=== PATIENT | female | born 1965 | race Caucasian/White ===

== ENCOUNTER → 2016-09-24 | Day surgery (SDC) | payer OTHER ==
[~2016-09-24] MED LIST: ISOSULFAN BLUE 10 MG/ML VIAL SQ ONE; LIDOCAINE 1%-EPI 1:100,000 30 ML MDV IJ ONE; LIDOCAINE HCL 1%, 10 MG/ML (20ML VIAL) ONE
--- NOTE | 2016-09-25 14:36 | PATH ---
Surgical Pathology Report Patient Name: ARJUN PÉREZ [facility]. Rec. #: [id number] /Age/Gender: 1965 (Age: 51) / F Account: [id number] Location: [facility] Taken: 09/24/2016 Received: 09/24/2016 Reported: 09/25/2016 Physicians: José Bailon M.D. Specimen(s) Received RIGHT BREAST CORE BIOPSY 10:00, 5-6 CM FN Clinical History Ultrasound findings: Highly suspicious/malignant Final Diagnosis BREAST, RIGHT, 10:00, 5-6 CM FN, CORE BIOPSY: INVASIVE DUCTAL CARCINOMA, POORLY DIFFERENTIATED WITH PROMINENT ASSOCIATED LYMPHOPLASMOCYTIC INFILTRATE. INVASIVE CARCINOMA MEASURES 9 MM IN GREATEST DIMENSION IN THIS MATERIAL. Results of ER and DC studies performed at [facility] are as follows: ER (clone [id number] mouse monoclonal antibody by Le[employer]): > 90 % nuclear staining with strong to moderate intensity (Positive). DC (clone16 mouse monoclonal antibody by Leica) : 0 % nuclear staining (Negative). Results of Her2 and Ki67 studies will be reported separately in an addendum. Positive and negative controls (internal if applicable) show appropriate results. Formalin fixation and cold ischemic times are within current ASCO/CAP recommendations for ER, DC and Her2 testing. Electronically Signed Sandra Montanez M.D. Addendum Reported: 09/29/2016 Addendum Diagnosis Results of Her2 (IHC) & Ki-67 studies performed at [place], [place] ([id number]) are as follows: Her2 IHC (EP3 from [employer], formerly known as [id number], using Smith Polymer Refine detection kit): 0 (Negative). Ki-67: ~90% (High). Positive and negative controls (internal if applicable) show appropriate results. Sandra Montanez M.D. Gross Description Received in formalin, labeled "right breast 10:00, 5-6 cmfn," are 4 woodard-yellow, cylindrical portions of fibroadipose tissue ranging from 1.7-2.1 cm. in length and averaging 0.2 cm. in diameter. The specimen is submitted in toto in one cassette. Time to formalin fixation: 2 minutes Total formalin fixation time: Approximately 9 hours. 09/24/201609/24/2016
== END | disposition home or self-care (01) ==
LOC: FRAD 07:43 → FRADUS-SUR 07:43
PROVIDERS: ATTEND Physician Assistant Medical
PROC: 0HBT3ZX Excision of Right Breast, Percutaneous Approach, Diagnostic (ICD-10-PCS; principal; 2016-09-24)
DX: N63 Unspecified lump in breast (principal); C50.411 Malignant neoplasm of upper-outer quadrant of right female breast
CPT/HCPCS: 19083; 76641-TC-50; 87899; 88305-TC; 88342-TC; A4648; G0204-TC; G0206-TC

== ENCOUNTER 2016-11-11 09:17 | Inpatient (IN) | payer OTHER ==
[2016-10-31 09:27] VITALS: BMI 26.0
--- NOTE | 2016-11-03 14:09 | HP ---
Admitting History and Physical - Primary Care Physician PCP: Silvia Taylor - Admission Chief Complaint: Right breast cancer History of Present Illness: 51 year old postmenapausal female. She felt a plpable right upper outer quadrant breat mass on 09/13/2016. Mammogram wnl march 2016 and diagnostic right mammogram and US 09/24/2016 whcich showed 2.2x1.4x1.2 cm mass at 10;00. US core bx 09/24/2016 invasive ductal carcinoma. Oncologist did not recommend neoadjuvant chemotherapy first. Breast MRI Right breast newly diagnosed right breast cancer at 10:00. left breast negative. History Source: Patient Limitations to Obtaining History: No Limitations - Past Medical History ...LMP: 08/10/15 Musculoskeletal: Yes: Other (Herniated disc cervical) Additional Past Medical History: Seasonal allergies Herniated cervical disc - Past Surgical History Past Surgical History: Yes: Hernia Repair (inguinal 1989) - Smoking History Smoking history: Current every day smoker Have you smoked in the past 12 months: Yes Aproximately how many cigarettes per day: 5 - Alcohol/Substance Use Hx Alcohol Use: Yes (SOCIAL) Home Medications - Allergies Allergies/Adverse Reactions: Allergies Allergy/AdvReac Type Severity Reaction Status Date / Time No Known Allergies Allergy Verified 10/31/16 09:27 - Home Medications Home Medications: Ambulatory Orders Cetirizine HCl [Zyrtec -] 10 mg PO DAILY 10/31/16 Family Disease History - Family Disease History Family Disease History: CA: Grandparent (paternal GM breast ca 85), Mother ( ovarian cancer 60) Other Family History: pat aunt ovarian cancer 52 Physical Examination Constitutional: Yes: Well Nourished, No Distress Breast(s): Yes: Other (B cup breasts symmetrical 2 cm mobile mass in right upper outer quadrant with post bx changes, no palpable adenopathy, left breast negatve) Problem List - Problems (1) Breast cancer, right Code(s): C50.911 - MALIGNANT NEOPLASM OF UNSP SITE OF RIGHT FEMALE BREAST Qualifiers: Breast location: upper outer quadrant of breast Patient sex: female Qualified Code(s): C50.411 - Malignant neoplasm of upper-outer quadrant of right female breast Assessment/Plan Right breast wide excision, sentenel node biopsy , lymphoscintogram, possible axillary dissection , intraop radiation
[2016-11-11] MEDS ORDERED: MIDAZOLAM HCL 2 MG/2 ML SINGLE DOSE VIAL ONE (10:20)
[2016-11-11] MEDS ORDERED: PROPOFOL 20 ML ONE (10:38)
[2016-11-11] MEDS ORDERED: ROCURONIUM BROMIDE 50 MG/5 ML VIAL ONE (10:38)
[2016-11-11] MEDS ORDERED: LIDOCAINE HCL/PF 2% SDV 5ML VIAL ONE (10:39)
[2016-11-11] MEDS ORDERED: ceFAZolin SODIUM 1 GM VIAL ONE (10:48)
[2016-11-11] MEDS ORDERED: DEXAMETHASONE SOD PHOSPHATE 4 MG/1 ML VIAL ONE (12:04)
[2016-11-11] MEDS ORDERED: ONDANSETRON 4 MG/2 ML VIAL ONE ×2 (12:04→13:30)
[2016-11-11] MEDS ORDERED: LIDOCAINE HCL 2% JELLY (5 ML/TUBE) ONE (13:30)
[2016-11-11] MEDS ORDERED: oxyCODONE HCL 5 MG TABLET PO PRN ×2 (13:44→13:47)
[2016-11-11] MEDS ORDERED: LACTATED RINGERS SOLUTION 1,000 ML IV SCH ×2 (13:45→14:00)
[2016-11-11] MEDS ORDERED: ONDANSETRON 4 MG/2 ML VIAL IVPUSH PRN (14:11)
[2016-11-11] MEDS ORDERED: ONDANSETRON 4 MG/2 ML VIAL IVPB PRN (14:11)
[2016-11-11] MEDS ORDERED: FAMOTIDINE 20 MG/50 ML IVPB 50 ML IVPB ONE (14:38)
[2016-11-11] MEDS ORDERED: FAMOTIDINE 20 MG PREMIXED IVPB IVPB ONE (14:40)
[2016-11-11 15:48] VITALS: TEMP 98.3
[2016-11-11 16:46] VITALS: BP 97/61; PULSE 74
--- NOTE | 2016-11-12 13:06 | OP ---
DATE OF OPERATION: 11/11/2016 TITLE OF PROCEDURE: Reconstruction of right partial mastectomy defect status post right partial mastectomy. ATTENDING SURGEON: Elio Swan MD The procedure is performed in combination with a right partial mastectomy and sentinel lymph node biopsy performed by Dr. Silvia Taylor. That portion of the procedure to be dictated separately by Dr. Taylor. ANESTHESIA: General endotracheal anesthesia. DESCRIPTION OF PROCEDURE: The patient is brought to the operating room, positioned by Dr. Taylor and her team. The patient is prepped and draped, after which I am scrubbed into the operating room. She received 1 g of Ancef preoperatively. She received NICKI hose and sequential compression devices on bilateral legs. A timeout was called. Patient, procedure, side, and sites were verified. My portion of the dictation begins at the completion of Dr. Taylor's partial mastectomy and sentinel lymph node biopsy. At this point an assessment of the tissues is made. It was determined by Dr. Taylor and her team that intraoperative radiation would not be possible given the thinness of the anterior skin flap. It was also noted by me that there was poor viability of the anterior skin flap, which appeared blistered, and it was not likely to heal. I discussed this with Dr. Taylor, and given how superficial the tumor was, it was decided to remove the injured skin as part of the partial reconstruction. That skin was sent for pathology as an additional anterior margin of resection. At this point, the reconstruction was performed by mobilization of axillary tissue posteriorly using axillary fat mobilized on a posterior deep pedicle and mobilized into the defect. Separately, an anterior medial glandular flap of tissue is elevated and mobilized off of the pectoralis major muscle as well as off of the anterior skin so that it could be mobilized without distorting the breast. These 2 flaps have both axillary fat and anteromedial breast tissue are mobilized towards each other and secured to one another with a series of interrupted 2-0 Vicryl suture. The tissues are approximated and sutured to the chest wall. It should be noted that prior to closing the defect, the borders of the defect were marked with clips so should a positive margin occur, recreation of the defect would be possible. Tissues being mobilized, then left a small skin defect which was able to be mobilized by back cutting the existing incision in toward the axilla and rotating skin into the defect, which was able to be closed without tension. This skin closure was able to be performed with a series of interrupted buried deep dermal 3-0 Monocryl suture followed by running subcuticular 3-0 Monocryl suture. Small irregularities in the skin closure are corrected with a 5-0 nylon suture. The wound was dressed with Bacitracin and Xeroform, ABD, gauze, and a surgical bra. She was awoken from anesthesia, having tolerated the procedure well, transferred to recovery without complication. Drake [id number]
--- NOTE | 2016-11-12 14:59 | OP ---
DATE OF OPERATION: 11/11/2016 PROCEDURE: Right partial mastectomy and sentinel biopsy PREOPERATIVE DIAGNOSIS: Right breast cancer POSTOPERATIVE DIAGNOSIS: Right breast cancer SURGEONS: Devin Taylor MD, Elio Swan MD ANESTHESIA: General. ANESTHESIOLOGIST: SPECIMEN: (1) [place] nodes. (2) Axillary fat. (3) Right breast partial mastectomy. (4) Additional margins. (5) Additional anterior margin. INDICATION FOR PROCEDURE: The patient is a 51-year-old female who felt a right breast mass in September 2016. Mammogram was normal in March 2016. Diagnostic imaging showed a 2.2-cm mass in the right breast at 10 o'clock. Ultrasound- guided biopsy showed an ER-positive and [place] and HER2/linda negative invasive ductal cancer with a Ki 67 of 90%. She was seen by Medical Oncology who did not recommend preoperative chemotherapy. She is going to the operating room today for a partial mastectomy and sentinel node biopsy as well as intraoperative radiation therapy as part of the TARGIT-B study. The procedure, risks and complications were discussed with her prior to surgery. PROCEDURE: The patient went to Nuclear Medicine where she underwent lymphoscintigraphy. She was then taken to the ambulatory area where informed consent was obtained. The right breast was identified with a marker. Examination of the right breast showed a palpable mass at 10 o'clock. She was taken to the operating room and placed on the operating table in the supine position. Sequential compression devices were placed on both legs. She received antibiotics prior to surgery. She was intubated. The right breast and axilla were prepped and draped in the usual fashion. Isosulfan blue was injected into the breast, and the breast was massaged for several minutes. The operative field was prepped and draped in the usual fashion. A timeout was performed. The patient had an incision from a previous procedure in the upper outer quadrant of the right breast. This incision was re-opened and deepened using electrocautery. There was some scar tissue, which was easily mobilized. Both the sentinel node and the wide excision was done from this incision. The probe was used to identify areas of high counts. Dissection in this area showed several nodes, which were not blue but all had high counts. Four lymph nodes were removed and sent to pathology for permanent suction. Attention was then turned to removal of the right breast cancer. The mass was identified. Electrocautery was used to mobilize the tissue around the mass. The mass was fairly superficial, so the anterior skin flap was quite thin. The mass was completely mobilized down toward the chest wall. The specimen was removed and oriented with a short stitch for the superior margin and a long stitch for the lateral margin. The specimen was placed in formalin to be sent to pathology for further examination. Additional margins were then taken. The margins were taken from the anterior, superior, inferior, medial and lateral regions of the biopsy cavity. There was no additional margin from the deep part of the dissection as this was already on muscle. Dr. Swan then mobilized tissue to be used as part of the closure. He will dictate this part of the procedure as well as closure of the incision. Evaluation of the skin flap showed there was some cautery damage to a portion of the skin. We then attempted to prepare for the intraoperative radiation treatment. A 4.5- cm probe was selected. This fit well into the cavity. However, after reviewing the available coverage for the probe, it was decided that there was too much risk of damage to the overlying skin due to lack of sufficient coverage. We decided to abort the radiation treatment and continue with the rest of the procedure. Dr. Swan then performed his procedure, which he will dictate. The wound was then irrigated and inspected for hemostasis. Once hemostasis was satisfactory, the incision was closed. The wound was cleaned and dressed with a sterile dressing. The patient was then awakened and taken to the recovery area in satisfactory condition. She tolerated the procedure well. At the end of the procedure, all sponge and instruments were correct. I was present during the entire case. DEVIN TAYLOR M.D. [id number] MTDD
--- NOTE | 2016-11-13 15:34 | PATH ---
Surgical Pathology Report Patient Name: ARJUN PÉREZ [facility]. Rec. #: [id number] /Age/Gender: 1965 (Age: 51) / F Account: [id number] Location: [facility] Taken: 11/11/2016 Received: 11/11/2016 Reported: 11/13/2016 Physicians: Silvia Taylor M.D. Specimen(s) Received A: RIGHT BREAST AXILLARY SENTINEL NODES B: RIGHT BREAST AXILLARY FAT C: RIGHT BREAST WIDE EXCISION D: RIGHT BREAST INFERIOR MARGIN E: RIGHT BREAST LATERAL MARGIN F: RIGHT BREAST ANTERIOR MARGIN G: RIGHT BREAST SUPERIOR MARGIN H: RIGHT BREAST MEDIAL MARGIN I: RIGHT BREAST SKIN ADDITIONAL ANTERIOR MARGIN Clinical History Palpable mass Invasive Final Diagnosis A. LYMPH NODES, RIGHT AXILLARY, SENTINEL LYMPH NODE EXCISION: THREE BENIGN LYMPH NODES (0/3) BY STANDARD HEMATOXYLIN AND EOSIN STAIN (MULTIPLE LEVELS EXAMINED). B. LYMPH NODES, RIGHT AXILLARY, EXCISION: TWO BENIGN LYMPH NODE (0/2) BY STANDARD HEMATOXYLIN AND EOSIN STAIN (MULTIPLE LEVELS EXAMINED). C. RIGHT BREAST, WIDE EXCISION: POORLY DIFFERENTIATED INVASIVE DUCTAL CARCINOMA WITH PROMINENT ASSOCIATED LYMPHOPLASMOCYTIC INFILTRATE, CLAUDIO GRADE 3 OF 3 (TUBULE SCORE 3 OF 3, NUCLEAR GRADE 3 OF 3, MITOTIC SCORE 3 OF 3, TOTAL 9 OF 9), MEASURING 2.1 CM IN GREATEST DIMENSION MEASURED ON A SLIDE. NO DUCTAL CARCINOMA IN SITU (DCIS) IDENTIFIED. INVASIVE CARCINOMA IS 0.1 CM FROM THE SUPERIOR AND ANTERIOR ASPECTS OF THE SPECIMEN, AND 0.2 CM FROM THE INFERIOR AND DEEP ASPECTS OF THE SPECIMEN (SEE SPECIMENS D-H FOR FINAL MARGINS). NO LYMPHOVASCULAR INVASION IDENTIFIED. NO SKIN OR SKELETAL MUSCLE PRESENT. REMAINING BREAST TISSUE WITH FIBROCYSTIC CHANGES INCLUDING ADENOSIS, STROMAL FIBROSIS, AND DUCTAL DILATATION. D. RIGHT BREAST, INFERIOR MARGIN, EXCISION: BENIGN FIBROFATTY TISSUE. E. RIGHT BREAST, LATERAL MARGIN, EXCISION: BENIGN FIBROFATTY TISSUE. F. RIGHT BREAST, ANTERIOR MARGIN, EXCISION: BENIGN BREAST TISSUE. G. RIGHT BREAST, SUPERIOR MARGIN, EXCISION: BENIGN FIBROFATTY TISSUE. H. RIGHT BREAST, MEDIAL MARGIN, EXCISION: BENIGN BREAST TISSUE. I. RIGHT BREAST, SKIN AND ADDITIONAL ANTERIOR MARGIN, EXCISION: UNREMARKABLE SKIN. Comment: Also see prior specimen [id number]. Comments Breast Invasive Carcinoma: Surgical Pathology Cancer Case Summary Based on AJCC/UICC TNM, 7th edition Procedure _X__ Excision without image-guided localization Lymph Node Sampling (select all that apply) (required only if lymph nodes are present in the specimen) _X__ [place] lymph node(s) _X__ Axillary dissection (partial or complete dissection) Specimen Laterality _X__ Right Tumor Size: Size of Largest Invasive Carcinoma Greatest dimension of largest focus of invasion over 1 mm: 21 mm Tumor Focality _X__ Single focus of invasive carcinoma Macroscopic and Microscopic Extent of Tumor Skin _X__ Invasive carcinoma does not invade into the dermis or epidermis Nipple _X__ Not applicable (excisions less than total mastectomy) Ductal Carcinoma In Situ (DCIS) _X__ No DCIS is present Histologic Type of Invasive Carcinoma : _X__ Invasive carcinoma of no special type (ductal, not otherwise specified) Histologic Grade: (Mcdowell Histologic Score) Tubular Differentiation _X__ Score 3 Nuclear Pleomorphism _X__ Score 3 Mitotic Rate _X__ Score 3 Overall Grade _X__ Grade 3: scores of 8 or 9 (poorly differentiated) Margins _X__ Margins uninvolved by invasive carcinoma (required only if residual invasive carcinoma is present in specimen) Distance from closest margin: Cannot be determined. Invasive carcinoma is 1 mm from the anterior and superior aspects of the wide excision, and 2 mm from the inferior and deep aspects of the wide excision, but is not present in the final margins (Specimens D-H) Lymph-Vascular Invasion _X__ Not identified Lymph Nodes Total number of lymph nodes examined (sentinel and nonsentinel): 5 Number of sentinel lymph nodes examined: 3 Number of lymph nodes with macrometastases ( > 2 mm): 0 Number of lymph nodes with micrometastases (>0.2 mm to 2 mm and/or >200cells):0 Number of lymph nodes with isolated tumor cells (=0.2 mm and =200 cells): 0 Extranodal Extension _X__ Not applicable Pathologic Staging (pTNM) Primary Tumor (Invasive Carcinoma): pT2 Regional Lymph Nodes (pN): pN0 Biomarker Studies Results of ER and RI studies performed on a prior biopsy ( [id number] ) at [facility] are as follows: ER (clone [id number] mouse monoclonal antibody by [employer]): >90% nuclear staining with strong intensity (Positive). RI (clone16 mouse monoclonal antibody by [employer]) : 0% nuclear staining (Negative). Results of Her2 (IHC) & Ki-67 studies performed on a prior biopsy ( [id number]) at [place], [place] ( [id number]) are as follows: Her2 IHC (EP3 from [employer], formerly known as [id number], using Smith Polymer Refine detection kit): 0 (Negative) Ki67: ~90% (High) Positive and negative controls (internal if applicable) show appropriate results. Formalin fixation and cold ischemic times are within current ASCO/CAP recommendations for ER, RI and Her2 testing. Electronically Signed Chente Martínez M.D. Gross Description A. Received in formalin labeled "right breast axillary sentinel nodes," are 4 woodard, possible lymph nodes with attached fat. Each lymph node is bisected and the specimen is entirely submitted in 4 cassettes. B. Received in formalin labeled "right breast axillary fat," is a 2.5 x 2.4 x 0.3 cm portion of yellow, lobulated adipose tissue possibly containing a lymph node. The specimen is submitted in toto in one cassette. C. Received in formalin, labeled "right breast wide excision," is a 5.0 x 3.5 x 2.1 cm. woodard-yellow, irregular, portion of fibroadipose tissue. There is no needle localization wire present. There is a short suture marking the superior aspect and a long suture marking the lateral aspect, per the surgeon. There is no skin or nipple present. The specimen is inked as follows: superior and lateral blue; inferior green; medial yellow; anterior red; deep black. The specimen is serially sectioned from lateral to medial. Sectioning reveals a 2.0 x 2.0 x 1.6 cm woodard, indurated mass with central necrosis. The mass is focally at 0.1 cm from the deep margin and 0.1 cm from the anterior margin. Additionally, the mass is focally at 0.3 cm from the superior margin and 0.3 cm from the inferior margin. [place] [employer] sections are submitted in 7 cassettes as follows: 1-full face section of mass with anterior and deep margins; 2-additional mass with anterior and deep margins; 3-4-mass with superior, anterior and deep margins; 5-mass with inferior, anterior and deep margins; 6-medial margin; 7-lateral margin. Time to formalin fixation: 45 minutes Total formalin fixation time: Approximately 29 hours. D. Received in formalin labeled "right breast inferior margin," is a 2.0 x 1.5 x 0.3 cm irregular portion of fibroadipose tissue with a suture marking the biopsy cavity side, per the surgeon. The new margin is inked green and the specimen is serially sectioned. The specimen is entirely submitted in 2 cassettes. E. Received in formalin labeled "right breast lateral margin," is a 4.3 x 2.5 x 0.9 cm irregular portion of fibroadipose tissue with a suture marking the biopsy cavity side, per the surgeon. The new margin is inked green and the specimen is serially sectioned. The specimen is entirely submitted in 4 cassettes. F. Received in formalin labeled "right breast anterior margin," is a 2.4 x 1.4 x 0.5 cm irregular portion of fibroadipose tissue with a suture marking the biopsy cavity side, per the surgeon. The new margin is inked green and the specimen is serially sectioned. The specimen is entirely submitted in 2 cassettes. G. Received in formalin labeled "right breast superior margin," is a 3.0 x 2.1 x 1.8 cm irregular portion of fibroadipose tissue with a suture marking the biopsy cavity side, per the surgeon. The new margin is inked green and the specimen is serially sectioned. The specimen is entirely submitted in 3 cassettes H. Received in formalin labeled "right breast and medial margin," is a 2.0 x 1.8 x 0.9 cm irregular portion of fibroadipose tissue with a suture marking the biopsy cavity side, per the surgeon. The new margin is inked green and the specimen is serially sectioned. The specimen is entirely submitted in 2 cassettes. I. Received in formalin labeled "right breast skin additional anterior margin," is a 6.0 x 1.8 cm woodard, irregular skin shave. The base is inked green and textile designs sales representative sections are submitted in 2 cassettes. DL11/12/2016 saudi11/12/2016
== END 2016-11-11 16:40 | disposition home or self-care (01) | DRG 363 ==
LOC: FM/S 09:17 → EDSTATUS 09:30
PROVIDERS: ADMIT Surgery; ATTEND Surgery
PROC: 0HBT0ZZ Excision of Right Breast, Open Approach (ICD-10-PCS; principal; 2016-11-11 11:06)
PROC: 07B50ZX Excision of Right Axillary Lymphatic, Open Approach, Diagnostic (ICD-10-PCS; 2016-11-11 11:06)
PROC: 0H0T07Z Alteration of Right Breast with Autologous Tissue Substitute, Open Approach (ICD-10-PCS; 2016-11-11 11:06)
DX: C50.411 Malignant neoplasm of upper-outer quadrant of right female breast (principal); M50.20 Other cervical disc displacement, unspecified cervical region; F17.210 Nicotine dependence, cigarettes, uncomplicated; K40.90 Unilateral inguinal hernia, without obstruction or gangrene, not specified as recurrent
CPT/HCPCS: 78195-TC; 88302-TC; 88305-TC; 88307-TC; 94760; A9541

== ENCOUNTER 2016-12-25 07:38 | Day surgery (SDC) | payer OTHER ==
[2016-12-25] MEDS ORDERED: DEXAMETHASONE INJECTION 10 MG in SODIUM CHLORIDE 50 ML IVPB ONE (08:00)
[2016-12-25] MEDS ORDERED: PALONOSETRON HCL 0.25 MG in SODIUM CHLORIDE 50 ML IVPB ONE (08:00)
[2016-12-25] MEDS ORDERED: FOSAPREPITANT DIMEGLUMINE 150 MG in SODIUM CHLORIDE 150 ML IVPB ONE (08:00)
[2016-12-25] MEDS ORDERED: SODIUM CHLORIDE IV ONE (08:30)
[2016-12-25] MEDS ORDERED: DOCETAXEL IV ONE (08:30)
[2016-12-25] MEDS ORDERED: CYCLOPHOSPHAMIDE INJECTION 1,000 MG in SODIUM CHLORIDE 250 ML IVPB ONE (09:30)
[2016-12-25 10:40] LABS: BASOPHIL 0.4 % (0-2.0); MCH 31.8 pg (25.7-33.7); MCHC 33.4 g/dl (32.0-36.0); MEAN CELL VOLUME 95.1 fl (80-96); MEAN PLT VOLUME 9.2 fl (7.5-11.1); NEUTROPHILS 81.6 % (42.8-82.8); PLATELET COUNT 257 K/MM3 (134-434); RDW 13.1 % (11.6-15.6); WHITE BLOOD COUNT 17.1 K/mm3 (4.0-10.0)
[2016-12-25 11:03] LABS: ALBUMIN 3.8 g/dl (3.4-5.0); ANION GAP 12 (8-16); BILIRUBIN,TOTAL 0.3 mg/dL (0.2-1.0); CALCIUM 9.3 mg/dL (8.5-10.1); CO2 24 mmol/L (21-32); CREATININE 0.7 mg/dL (0.55-1.02); GLUCOSE,RANDOM 131 mg/dL (74-106); SGOT/AST 15 U/L (15-37); SGPT/ALT 17 U/L (12-78); TOT PROT 7.1 g/dl (6.4-8.2)
[2016-12-25 11:04] LABS: ALK PHOS 107 U/L (45-117)
--- NOTE | 2016-12-25 12:56 | PN ---
Progress Note (short form) - Note Progress Note: Plan PPD next week Christ MOSQUEDA Problem List - Problems (1) Exposure to TB Code(s): Z20.1 - CONTACT WITH AND (SUSPECTED) EXPOSURE TO TUBERCULOSIS
[2016-12-25] MEDS ORDERED: SODIUM CHLORIDE 250 ML IV ONE (13:00)
[2016-12-25] MEDS ORDERED: DEXAMETHASONE INJECTION 20 MG in SODIUM CHLORIDE 100 ML IVPB ONE (14:00)
[2016-12-25] MEDS ORDERED: PORTA CATH FLUSH 10 ML IVPUSH ONE (14:05)
--- NOTE | 2016-12-25 14:42 | CONS ---
DATE OF CONSULTATION: DATE OF DICTATION: 12/25/2016 INFECTIOUS DISEASE CONSULTATION HISTORY OF PRESENT ILLNESS: This is a 51-year-old female, originally from [place], whom I am asked to see for a history of a positive PPD. She was born in [place] and came to the [facility] by way of [place] approximately 20 years ago. For immigration reasons, she had a PPD placed, which she told Dr. Webb and myself had been positive. A workup for active TB was apparently performed at that time, and she was told that this was related to prior vaccination with BCG. She has never received any latent TB treatment. She has been recently diagnosed with stage I breast cancer and is about to start chemotherapy. A [id number]-dyhqorvx was inserted in the left chest recently. She has been afebrile and denies any cough, shortness of breath, hemoptysis, loss of appetite or weight loss. I am asked to see her now regarding further management for possible latent TB. I recommended a test for QuantiFERON gold, which was performed and came back negative. The Department of Health recommended that a PPD be placed. The patient seems insistent that this is unnecessary as she received BCG. PAST MEDICAL HISTORY: Denies diabetes, intravenous drug use, history of chronic liver disease or other systemic diseases. PHYSICAL EXAMINATION: General: She was an afebrile pleasant woman. Vital Signs: Temperature 98.5, pulse 89, blood pressure 110/69, respirations 16. Neck: Supple. Lungs: Clear. Heart: S1, S2. Regular rhythm. No murmur. Chest: Symmetrical, with a [id number]-ovbbadpz in situ. The site was clean. Abdomen: Soft, nontender. Extremities: Without edema. DIAGNOSTIC STUDIES: White count 17.1, hemoglobin 13.4, platelets 257. BUN 12, creatinine 0.7. Chest x-ray done as an outpatient shows no acute infiltrate, according to report from Dr. Webb. ASSESSMENT: 1. Possible latent tuberculosis, although QuantiFERON gold negative. 2. Breast cancer, stage I. PLAN: For completeness, will place a PPD next week. She is cleared to start chemotherapy. Elevated WBC noted on admission. In the absence of any fever or findings suggestive of infection, kindly recall as needed. VEENA ROBERT M.D. [id number]
[2016-12-25 18:11] VITALS: BP 92/63; PULSE 86; TEMP 98.5
== END 2016-12-25 20:42 | disposition home or self-care (01) ==
LOC: JONCCHEMO 07:38 → J7W 11:55 → JONCCHEMO 20:42
PROVIDERS: ATTEND Internal Medicine Hematology & Oncology
DX: Z51.11 Encounter for antineoplastic chemotherapy (principal); C50.911 Malignant neoplasm of unspecified site of right female breast
CPT/HCPCS: 36415; 80053; 85025; 87040; 87086; 96367; 96375; 96413; 96417; J2469; J8540; J9070; J9171

== ENCOUNTER 2016-12-29 07:08 | Day surgery (SDC) | payer OTHER ==
[2016-12-29] MEDS ORDERED: PEGFILGRASTIM 6 MG/0.6 ML DISP.SYRIN SQ ONE (08:00)
[2016-12-29 15:23] VITALS: BP 114/55; PULSE 87; TEMP 99.3
== END 2016-12-29 17:05 | disposition home or self-care (01) ==
LOC: JONCCHEMO 07:08 → J7W 11:19 → JONCCHEMO 17:05
PROVIDERS: ATTEND Internal Medicine Hematology & Oncology
PROC: 3E013GC Introduction of Other Therapeutic Substance into Subcutaneous Tissue, Percutaneous Approach (ICD-10-PCS; principal; 2016-12-29)
DX: C50.911 Malignant neoplasm of unspecified site of right female breast (principal)
CPT/HCPCS: 96372; J2505

== ENCOUNTER 2017-01-01 20:52 | Inpatient (IN) | payer OTHER ==
[2017-01-01 21:01] VITALS: BMI 27.8
--- NOTE | 2017-01-01 21:21 | PDOC ---
*Physical Exam - Vital Signs Last Vital Signs Temp Pulse Resp BP Pulse Ox 100.3 F H 76 18 116/67 100 01/01/17 20:59 01/01/17 20:59 01/01/17 20:59 01/01/17 20:59 01/01/17 20:59 - Physical Exam Comments: 01/01/17 21:21 The patient was examined by DARIN Beltran under my direct supervision. I personally evaluated the patient. I concur with the above findings and the plan of care. ED Treatment Course - LABORATORY CBC & Chemistry Diagram: 01/06/17 06:00 01/05/17 06:00 *DC/Admit/Observation/Transfer Diagnosis at time of Disposition: Fever - Discharge Dispostion Disposition: HOME Condition at time of disposition: Stable
--- NOTE | 2017-01-01 21:21 | PDOC ---
History of Present Illness - General Chief Complaint: Cold Symptoms Stated Complaint: FEVER Time Seen by Provider: 01/01/17 21:01 History Source: Patient - History of Present Illness Initial Comments: 01/01/17 21:17 51 year old female with history of breast CA currently on chemo c/o tmax 100.9 at home. last chemo 1 week ago. patient reports runny nose, b/l lower back pain at this time. denies cough, chest pain, abdominal pain, NVD, urinary complaints. Past History - Past Medical History Allergies/Adverse Reactions: Allergies Allergy/AdvReac Type Severity Reaction Status Date / Time Latex, Natural Rubber Allergy Rash Verified 01/01/17 22:53 Home Medications: Ambulatory Orders Unobtainable [Unobtainable] 01/01/17 Anemia: No Asthma: No Cancer: Yes (breast) Cardiac Disorders: No CVA: No COPD: No CHF: No Dementia: No Diabetes: No GI Disorders: Yes (inguinal hernia) Disorders: No HTN: No Hypercholesterolemia: No Liver Disease: No Seizures: No Thyroid Disease: No - Surgical History Abdominal Surgery: No Appendectomy: No Cardiac Surgery: No Cholecystectomy: No Lung Surgery: No Neurologic Surgery: No Orthopedic Surgery: No - Psycho/Social/Smoking Cessation Hx Anxiety: No Suicidal Ideation: No Smoking History: Former smoker Have you smoked in the past 12 months: Yes Number of Cigarettes Smoked Daily: 5 Information on smoking cessation initiated: No Hx Alcohol Use: No Drug/Substance Use Hx: No Substance Use Type: None Hx Substance Use Treatment: No Review of Systems - Review of Systems Able to Perform ROS?: Yes Is the patient limited Bulgarian proficient: No HEENTM: Yes: Nose Congestion. No: Symptoms Reported, See HPI, Eye Pain, Blurred Vision, Tearing, Recent change in vision, Double Vision, Cataracts, Ear Pain, Ocular Prothesis, Ear Discharge, Nose Pain, Tinnitus, Nose Bleeding, Hearing Loss, Throat Pain, Throat Swelling, Mouth Pain, Dental Problems, Difficulty Swallowing, Mouth Swelling, Other Respiratory: No: Symptoms reported, See HPI, Cough, Orthopnea, Shortness of Breath, SOB with Exertion, SOB at Rest, Stridor, Wheezing, Productive cough, Hemoptysis, Other ABD/GI: No: Symptoms Reported, See HPI, Abdominal Distended, Abd. Pain w/ defecation, Blood Streaked Bowels, Constipated, Diarrhea, Difficulty Swallowing , Nausea, Poor Appetite, Poor Fluid Intake, Rectal Bleeding, Vomiting, Indigestion, Abdominal cramping, Tarry Stools, Other : No: Symptoms Reported, See HPI, Burning, Dysuria, Discharge, Frequency, Flank Pain, Hematuria, Incontinence, Pain, Urgency, Testicular Mass, Testicular Swelling, Lesions, Testicular Pain, Other Musculoskeletal: Yes: Back Pain Neurological: No: Symptoms reported, See HPI, Headache, Numbness, Paresthesia, Pre-Existing Deficit, Seizure, Tingling, Tremors, Weakness, Unsteady Gait, Ataxia, Dizziness, Other *Physical Exam - Vital Signs Last Vital Signs Temp Pulse Resp BP Pulse Ox 100.3 F H 76 18 116/67 100 01/01/17 20:59 01/01/17 20:59 01/01/17 20:59 01/01/17 20:59 01/01/17 20:59 - Physical Exam General Appearance: Yes: Appropriately Dressed HEENT: positive: Normal ENT Inspection, Nasal Congestion Respiratory/Chest: positive: Lungs Clear, Normal Breath Sounds Cardiovascular: positive: Regular Rhythm, Regular Rate Gastrointestinal/Abdominal: positive: Normal Bowel Sounds, Soft Extremity: positive: Normal Capillary Refill, Normal Inspection, Normal Range of Motion Integumentary: positive: Normal Color, Dry, Warm Neurologic: positive: Fully Oriented, Alert, Normal Mood/Affect Heart Score/ECG Review - ECG Intrepretation Rhythm: Regular Rhythm Comment:: 01/02/17 01:23 NSR 91 ED Treatment Course - LABORATORY CBC & Chemistry Diagram: 01/01/17 22:32 01/01/17 22:32 Medical Decision Making - Medical Decision Making 01/01/17 21:23 A: fever r/o neutropenia P: cbc cmp blood culture Ua urine culture Chest xray: neg official read pending 01/02/17 00:07 Dr. Webb recommends vancomycin/ zosyn. admit/obs *DC/Admit/Observation/Transfer Diagnosis at time of Disposition: Fever Qualifiers: Fever type: unspecified Qualified Code(s): R50.9 - Fever, unspecified - Discharge Dispostion Admit: Yes - Referrals Referrals: Aashish Beltran MD [Primary Care Provider] -
[2017-01-01 22:44] LABS: MCH 31.9 pg (25.7-33.7); MCHC 33.8 g/dl (32.0-36.0); MEAN CELL VOLUME 94.4 fl (80-96); MEAN PLT VOLUME 9.9 fl (7.5-11.1); PLATELET COUNT 198 K/MM3 (134-434); RDW 12.6 % (11.6-15.6); WHITE BLOOD COUNT 6.2 K/mm3 (4.0-10.0)
[2017-01-01 22:47] LABS: URINE APPEARANCE CLEAR; URINE BILIRUBIN NEGATIVE (NEGATIVE); URINE BLOOD 1+ (NEGATIVE); URINE COLOR STRAW; URINE GLUCOSE (UA) NEGATIVE (NEGATIVE); URINE KETONE NEGATIVE (NEGATIVE); URINE LEUK ESTERASE NEGATIVE (NEGATIVE); URINE NITRITE NEGATIVE (NEGATIVE); URINE PROTEIN NEGATIVE (NEGATIVE); URINE UROBILINOGEN NEGATIVE E.U./dl (0.2-1.0)
[2017-01-01 22:50] LABS: URINE BACTERIA RARE /hpf (NONE SEEN); URINE RBC 3 /hpf (0-3); URINE WBC 1 /hpf (3-5)
[2017-01-01 22:57] LABS: INR 1.04 (0.82-1.09); PROTHROMBIN TIME (PATIENT) 11.5 SEC (9.98-11.88)
[2017-01-01 23:07] LABS: ALBUMIN 3.5 g/dl (3.4-5.0); ALK PHOS 98 U/L (45-117); ANION GAP 8 (8-16); BILIRUBIN,TOTAL 0.5 mg/dL (0.2-1.0); CALCIUM 8.8 mg/dL (8.5-10.1); CO2 29 mmol/L (21-32); COCKROFT - GAULT 106.8875; CREATININE 0.7 mg/dL (0.55-1.02); GLUCOSE,RANDOM 103 mg/dL (74-106); SGOT/AST 21 U/L (15-37); SGPT/ALT 17 U/L (12-78); TOT PROT 6.6 g/dl (6.4-8.2)
[2017-01-01 23:09] LABS: TROPONIN I < 0.02 ng/ml (0.00-0.05)
[2017-01-01 23:11] LABS: METAMYELOCYTE 4 % (0-2); PLATELET ESTIMATE ADEQUATE (NORMAL)
[2017-01-01] MEDS ORDERED: VANCOMYCIN 1,500 MG in DEXTROSE 5%-WATER - 500 ML IVPB ONE (23:56)
[2017-01-01] MEDS ORDERED: PIPERACILLIN/TAZOB 4.5 GM/100 ML PRE-DOCKED IVPB ONE (23:57)
[2017-01-02] MEDS ORDERED: VANCOMYCIN 1,000 MG in DEXTROSE 5%-WATER - 500 ML IVPB ONE (00:03)
[2017-01-02] MEDS ORDERED: SODIUM CHLORIDE 1,000 ML IV SCH ×3 (00:30→16:59)
[2017-01-02] MEDS ORDERED: ACETAMINOPHEN 325 MG TABLET (FP) PO ONE (00:32)
[2017-01-02] MEDS ORDERED: PIPERACILLIN/TAZOB 4.5 GM 100 ML IVPB ONE (00:39)
[2017-01-02] MEDS ORDERED: ACETAMINOPHEN 325 MG TABLET (FP) ONE (00:39)
[2017-01-02] MEDS ORDERED: VANCOMYCIN 1 GRAM (PRE-DOCKED) 250 ML IVPB ONE (00:40)
[2017-01-02] MEDS ORDERED: ALBUTEROL SO4 0.083% IH SOL 2.5 MG/3 ML VIAL.NEB. NEB PRN (01:34)
[2017-01-02] MEDS ORDERED: ONDANSETRON 4 MG/2 ML VIAL IVPB PRN (01:34)
[2017-01-02] MEDS ORDERED: ACETAMINOPHEN 325 MG TABLET (FP) PO PRN (01:34)
--- NOTE | 2017-01-02 01:34 | HP ---
CHIEF COMPLAINT: fever PCP: Aashish Beltran MD HISTORY OF PRESENT ILLNESS: 51 year old female with pmh of breath cancer on chemotherapy last treatment was on last week presented to the ED with complaint of fever of 100.9 at home. Pt has been instructed to come to ED for any fever by Dr Webb. The patient denies any chills, cough, shortness of breath, chest pain, palpitation, nausea, vomiting, abdominal pain, diarrhea, dysuria, hematuria. No fatigue, weakness, no dizziness or lightheadedness. ER course was notable for: (1) CXR (2) WBC 6, Neutrophils 20% lymphocytes 42%, monocytes 32% (3) Vancomycin and Zosyn Recent Travel: none PAST MEDICAL HISTORY: Right Breast Invasive Ductal Carcinoma PAST SURGICAL HISTORY: Right breast surgery uncertain is partial mastectomy and Myomectomy Social History: Smoking:none Alcohol:none Drugs: none Family History: Multiple family history of cancer from father side with Ovarian CA, Breast CA, Lung CA, prostate CA Allergies Latex, Natural Rubber Allergy (Verified 01/01/17 22:53) Rash HOME MEDICATIONS: Home Medications Medication Instructions Recorded Unobtainable [Unobtainable] 01/01/17 REVIEW OF SYSTEMS CONSTITUTIONAL: fever Absent: chills, diaphoresis, generalized weakness, malaise, loss of appetite, weight change HEENT: Absent: rhinorrhea, nasal congestion, throat pain, throat swelling, difficulty swallowing, mouth swelling, ear pain, eye pain, visual changes CARDIOVASCULAR: Absent: chest pain, syncope, palpitations, irregular heart rate, lightheadedness , peripheral edema RESPIRATORY: Absent: cough, shortness of breath, dyspnea with exertion, orthopnea, wheezing, stridor, hemoptysis GASTROINTESTINAL: Absent: abdominal pain, abdominal distension, nausea, vomiting, diarrhea, constipation, melena, hematochezia GENITOURINARY: Absent: dysuria, frequency, urgency, hesitancy, hematuria, flank pain, genital pain MUSCULOSKELETAL: myalgia and low back pain Absent: arthralgia, joint swelling, neck pain SKIN: Absent: rash, itching, pallor HEMATOLOGIC/IMMUNOLOGIC: Absent: easy bleeding, easy bruising, lymphadenopathy, frequent infections ENDOCRINE: Absent: unexplained weight gain, unexplained weight loss, heat intolerance, cold intolerance NEUROLOGIC: Absent: headache, focal weakness or paresthesias, dizziness, unsteady gait, seizure, mental status changes, bladder or bowel incontinence PSYCHIATRIC: Absent: anxiety, depression, suicidal or homicidal ideation, hallucinations. PHYSICAL EXAMINATION Vital Signs - 24 hr 01/01/17 01/01/17 20:59 21:10 Temperature 100.3 F H Pulse Rate 76 Respiratory 18 Rate Blood Pressure 116/67 O2 Sat by Pulse 100 100 Oximetry (%) GENERAL: Awake, alert, and fully oriented, in no acute distress. HEAD: Normal with no signs of trauma. EYES: Pupils equal, round and reactive to light, extraocular movements intact, sclera anicteric, conjunctiva clear. No lid lag. EARS, NOSE, THROAT: Ears normal, nares patent, oropharynx clear without exudates. Moist mucous membranes. NECK: Normal range of motion, supple with left submandibular lymphadenopathy, JVD, or masses. LUNGS: Breath sounds equal, clear to auscultation bilaterally. No wheezes, and no crackles. No accessory muscle use. HEART: Regular rate and rhythm, normal S1 and S2 without murmur, rub or gallop. ABDOMEN: Soft, nontender, not distended, normoactive bowel sounds, no guarding, no rebound, no masses. No hepatomegaly or splenomegaly. MUSCULOSKELETAL: Normal range of motion at all joints. No bony deformities or tenderness. No CVA tenderness. UPPER EXTREMITIES: 2+ pulses, warm, well-perfused. No cyanosis. No clubbing. No peripheral edema. LOWER EXTREMITIES: 2+ pulses, warm, well-perfused. No calf tenderness. No peripheral edema. NEUROLOGICAL: Cranial nerves II-XII intact. Normal speech. Normal gait. PSYCHIATRIC: Cooperative. Good eye contact. Appropriate mood and affect. SKIN: Warm, dry, normal turgor, no rashes or lesions noted, normal capillary refill. horizontal scar in left breast from surgery Laboratory Results - last 24 hr 01/01/17 01/01/17 01/01/17 17:25 22:32 22:32 WBC 6.2 D RBC 3.77 Hgb 12.0 D Hct 35.6 MCV 94.4 MCHC 33.8 RDW 12.6 Plt Count 198 D MPV 9.9 Neutrophils % 20.0 L D Lymphocytes % 42.0 H D Monocytes % 32.0 H D Band Neutrophils 8.0 Metamyelocytes 4 H Myelocytes 4 H Promyelocytes 2 H Platelet Estimate Adequate Platelet Comment No clumping noted INR 1.04 Sodium Potassium Chloride Carbon Dioxide Anion Gap BUN Creatinine Creat Clearance w eGFR Random Glucose Calcium Total Bilirubin AST ALT Alkaline Phosphatase Creatine Kinase Troponin I Total Protein Albumin Urine Color Straw Urine Appearance Clear Urine pH 6.0 Urine Protein Negative Urine Glucose (UA) Negative Urine Ketones Negative Urine Blood 1+ H Urine Nitrite Negative Urine Bilirubin Negative Urine Urobilinogen Negative Ur Leukocyte Esterase Negative Urine RBC 3 Urine WBC 1 Ur Epithelial Cells Rare Urine Bacteria Rare 01/01/17 01/01/17 22:32 22:32 WBC RBC Hgb Hct MCV MCHC RDW Plt Count MPV Neutrophils % Lymphocytes % Monocytes % Band Neutrophils Metamyelocytes Myelocytes Promyelocytes Platelet Estimate Platelet Comment INR Sodium 137 Potassium 3.9 Chloride 100 Carbon Dioxide 29 D Anion Gap 8 BUN 7 D Creatinine 0.7 Creat Clearance w eGFR > 60 Random Glucose 103 D Calcium 8.8 Total Bilirubin 0.5 D AST 21 D ALT 17 Alkaline Phosphatase 98 Creatine Kinase 34 Troponin I < 0.02 Total Protein 6.6 Albumin 3.5 Urine Color Urine Appearance Urine pH Urine Protein Urine Glucose (UA) Urine Ketones Urine Blood Urine Nitrite Urine Bilirubin Urine Urobilinogen Ur Leukocyte Esterase Urine RBC Urine WBC Ur Epithelial Cells Urine Bacteria CBC, BMP 01/01/17 22:32 01/01/17 22:32 ASSESSMENT/PLAN: 51 year old female with pmh of breath cancer on chemotherapy last treatment was on last week presented to the ED with complain for fever of 100.9 at home. Low grade fever with lymphocytosis and monocytosis May be viral cause or chemotherapy effect ANC 1240, therefore no neutropenia Temp 100.3 in ED does not meet SIRS and QSOFA criteria most likely viral infection will do supportive treatment NS at 150 ml/h Acetaminophen PRN Zofran PRN Robutussin PRN Repeat labs in am f/u blood culture and urine culture Pt received Vancomycin and Zosyn in ED ID consult for antibiotic management Right breast cancer on chemotherpary s/p Myomectomy consult hem/onc Dr Byrd CBC in am FEN fluid: NS at 150ml/h, consider reducing to 100ml/h Electrolytes: no abnormalities Nutrition: regular diet DVT: SCD and early ambulation [facility] - Emergency Visit Emergency Visit: Yes ED Registration Date: 01/02/17 Care time: The patient presented to the Emergency Department on the above date and was hospitalized for further evaluation of their emergent condition. - New Patient This patient is new to me today: Yes Date on this admission: 01/02/17 - Critical Care Critical Care patient: No
--- NOTE | 2017-01-02 03:25 | PN ---
<Lesly Cervantes - Last Filed: 01/02/17 05:03> Teaching Attending Note ATTENDING PHYSICIAN STATEMENT I saw and evaluated the patient. I reviewed the resident's note and discussed the case with the resident. I agree with the resident's findings and plan as documented. SUBJECTIVE: 51 yo F with PMHx of Breast CA (currently on chemotherapy) who presents with fever (T max 100.9) and rhinorrhea today. The patient states her last chemotherapy treatment was one week ago on (12/25). Patient also notes bilateral lower back pain. The patient denies any cough, chest pain, headache or dizziness. She denies nausea, vomit, diarrhea or constipation. She denies dysuria, frequency, urgency or hematuria. PMH: Inguinal hernia PSH: None Family Hx: SH: Former smoker. denies drinking, drug use Allergies: Latex, Natural rubber OBJECTIVE: Last Vital Signs Temp Pulse Resp BP Pulse Ox 100.3 F H 76 18 116/67 100 01/01/17 20:59 01/01/17 20:59 01/01/17 20:59 01/01/17 20:59 01/01/17 21:10 GENERAL: Awake, alert, and fully oriented, in no acute distress. Afebrile. HEENT: Atraumatic. PERRLA, EOMI. Moist mucosa. No JVD LUNGS: No distress, speaks full sentences, clear to auscultation bilaterally HEART: Regular rate and rhythm, normal S1 and S2, no murmurs, rubs or gallops, peripheral pulses normal and equal bilaterally. ABDOMEN: Soft, nontender, normoactive bowel sounds. No guarding, no rebound. No masses EXTREMITIES: Normal inspection, Normal range of motion, no edema. No clubbing or cyanosis. NEUROLOGICAL: Cranial nerves II through XII grossly intact. Normal speech, gait deferred. No focal sensorimotor deficits SKIN: +Chemo port that does not look infected. Warm, Dry, normal turgor, no rashes or lesions noted. CBCD WBC 6.2 K/mm3 (4.0-10.0) D 01/01/17 22:32 RBC 3.77 M/mm3 (3.60-5.2) 01/01/17 22:32 Hgb 12.0 GM/dL (10.7-15.3) D 01/01/17 22:32 Hct 35.6 % (32.4-45.2) 01/01/17 22:32 MCV 94.4 fl (80-96) 01/01/17 22:32 MCHC 33.8 g/dl (32.0-36.0) 01/01/17 22:32 RDW 12.6 % (11.6-15.6) 01/01/17 22:32 Plt Count 198 K/MM3 (134-434) D 01/01/17 22:32 MPV 9.9 fl (7.5-11.1) 01/01/17 22:32 CMP Sodium 137 mmol/L (136-145) 01/01/17 22:32 Potassium 3.9 mmol/L (3.5-5.1) 01/01/17 22:32 Chloride 100 mmol/L (98-107) 01/01/17 22:32 Carbon Dioxide 29 mmol/L (21-32) D 01/01/17 22:32 Anion Gap 8 (8-16) 01/01/17 22:32 BUN 7 mg/dL (7-18) D 01/01/17 22:32 Creatinine 0.7 mg/dL (0.55-1.02) 01/01/17 22:32 Creat Clearance w eGFR > 60 (>60) 01/01/17 22:32 Calcium 8.8 mg/dL (8.5-10.1) 01/01/17 22:32 Total Bilirubin 0.5 mg/dL (0.2-1.0) D 01/01/17 22:32 AST 21 U/L (15-37) D 01/01/17 22:32 ALT 17 U/L (12-78) 01/01/17 22:32 Alkaline Phosphatase 98 U/L (45-117) 01/01/17 22:32 Total Protein 6.6 g/dl (6.4-8.2) 01/01/17 22:32 Albumin 3.5 g/dl (3.4-5.0) 01/01/17 22:32 Imaging: CXR Official read pending ASSESSMENT AND PLAN: IVF Continue abx: Vancomycin and Zosyn ID consult Oncology consult (Dr. Webb) in the AM Continue home meds Documentation prepared by Lesly Cervantes, acting as medical center representative for Denita Fuller MD. <Denita Fuller - Last Filed: 01/15/17 20:04> Teaching Attending Note Name of Resident: Joshua Campbell
[2017-01-02] MEDS ORDERED: SODIUM CHLORIDE 1,000 ML IV STA (06:43)
--- NOTE | 2017-01-02 09:19 | EKG ---
Test Reason : Blood Pressure : / mmHG Vent. Rate : 091 BPM Atrial Rate : 091 BPM P-R Int : 142 ms QRS Dur : 078 ms QT Int : 356 ms P-R-T Axes : 062 059 050 degrees QTc Int : 437 ms NORMAL SINUS RHYTHM NORMAL ECG WHEN COMPARED WITH ECG OF 31-OCT-2016 08:41, NO SIGNIFICANT CHANGE WAS FOUND Confirmed by ETHEL ELLER MD ([id number]) on 01/02/2017 9:19:24 AM Referred By: Confirmed By:ETHEL ELLER MD
--- NOTE | 2017-01-02 09:44 | PN ---
Progress Note, Physician Chief Complaint: ID Breast CA post insertion port and initiating of recent therapy last week. Presents with fever and no localizing complaints - Current Medication List Current Medications: Active Medications Acetaminophen (Tylenol -) 650 mg PO Q4H PRN PRN Reason: FEVER OR PAIN Albuterol Sulfate (Ventolin 0.083% Nebulizer Soln -) 1 amp NEB Q4H PRN PRN Reason: SHORT OF BREATH/WHEEZING Sodium Chloride (Normal Saline -) 1,000 mls @ 150 mls/hr IV ASDIR GELY Last Admin: 01/02/17 00:40 Dose: 150 mls/hr Ondansetron HCl (Zofran Injection) 4 mg IVPB Q6H PRN PRN Reason: NAUSEA - Objective Vital Signs: Vital Signs Temperature 98.3 F 01/02/17 06:58 Pulse Rate 80 01/02/17 06:58 Respiratory Rate 17 01/02/17 06:58 Blood Pressure 90/50 01/02/17 06:58 O2 Sat by Pulse Oximetry (%) 96 01/02/17 06:58 Constitutional: Yes: Well Nourished, No Distress HENT: No: Thrush Cardiovascular: Yes: S1, S2, Other (left portacath) Respiratory: Yes: WNL, Regular, CTA Bilaterally Gastrointestinal: Yes: WNL, Normal Bowel Sounds, Soft Edema: No Labs: INR, PTT INR 1.04 (0.82-1.09) 01/01/17 22:32 Problem List - Problems (1) Fever Code(s): R50.9 - FEVER, UNSPECIFIED Qualifiers: Fever type: unspecified Qualified Code(s): R50.9 - Fever, unspecified (2) Breast cancer, right Code(s): C50.911 - MALIGNANT NEOPLASM OF UNSP SITE OF RIGHT FEMALE BREAST Qualifiers: Breast location: upper outer quadrant of breast Patient sex: female Qualified Code(s): C50.411 - Malignant neoplasm of upper-outer quadrant of right female breast; Z17.0 - Estrogen receptor positive status [ER+] Assessment/Plan Microbiology Laboratory Tests 01/01/17 01/01/17 01/01/17 17:25 22:32 22:32 WBC 6.2 D Plt Count 198 D BUN 7 D Creatinine 0.7 Urine RBC 3 Urine WBC 1 Assessment Fever Breast CA post achemo Looks well nonneutropenic Plan Cefepime pending c/s 2 grs q8h Christ MOSQUEDA
[2017-01-02] MEDS ORDERED: CEFEPIME 2 GM/100 ML BAG PRE-DOCKED IVPB SCH ×2 (11:15→17:00)
[2017-01-02 11:18] LABS: MCH 32.3 pg (25.7-33.7); MEAN PLT VOLUME 9.2 fl (7.5-11.1); PLATELET COUNT 198 K/MM3 (134-434); WHITE BLOOD COUNT 14.2 K/mm3 (4.0-10.0)
[2017-01-02 11:45] LABS: ANION GAP 5 (8-16); BILIRUBIN,TOTAL 0.3 mg/dL (0.2-1.0); CALCIUM 8.4 mg/dL (8.5-10.1); CO2 29 mmol/L (21-32); COCKROFT - GAULT 106.8875; CREATININE 0.7 mg/dL (0.55-1.02); GLUCOSE,RANDOM 92 mg/dL (74-106); SGOT/AST 22 U/L (15-37); SGPT/ALT 15 U/L (12-78); TOT PROT 5.8 g/dl (6.4-8.2)
[2017-01-02 11:46] LABS: ALK PHOS 92 U/L (45-117)
[2017-01-02] MEDS: PANTOPRAZOLE 40 MG TABLET (FP) PO SCH (12:16)
--- NOTE | 2017-01-02 13:31 | PN ---
Physical Exam: SUBJECTIVE: Patient seen and examined by me at bedside. Patient offers no complaints and reports she was told by her oncologist to come to the ED if she was to have any fever. Patient states that last night she had a temperature of 100.9 and 100.7, which prompted her to come to the ED. She felt no symptoms and was just checking her temperature as advised twice a day in the morning and night. Otherwise, patient denies chills, nausea, vomiting, headaches, abdominal pain, chest pain, palpitations, shortness of breath, dysuria, hematuria. OBJECTIVE: Vital Signs Period Temp Pulse Resp BP Sys/Diaz Pulse Ox Last 24 Hr 98.3 F-98.8 F 80-88 16-18 90-106/50-53 96-99 GENERAL: The patient is awake, alert, and fully oriented, in no acute distress. EYES: Sclera anicteric, conjunctiva clear. ENT: Moist mucous membranes. LUNGS: Breath sounds equal, clear to auscultation bilaterally, no wheezes, no crackles, no accessory muscle use. HEART: Regular rate and rhythm, S1, S2 without murmur, rub or gallop. ABDOMEN: Soft, nontender, nondistended, normoactive bowel sounds. EXTREMITIES: No peripheral edema. SKIN: Warm, dry, normal turgor, no rashes or lesions noted Laboratory Results - last 24 hr 01/02/17 01/02/17 10:45 10:45 WBC 14.2 H D RBC 3.59 L Hgb 11.6 Hct 34.2 MCV 95.0 MCHC 34.0 RDW 13.0 Plt Count 198 MPV 9.2 Neutrophils % Y Lymphocytes % Y Sodium 141 Potassium 3.9 Chloride 107 Carbon Dioxide 29 Anion Gap 5 L BUN 6 L Creatinine 0.7 Creat Clearance w eGFR > 60 Random Glucose 92 Calcium 8.4 L Total Bilirubin 0.3 D AST 22 ALT 15 Alkaline Phosphatase 92 Total Protein 5.8 L Albumin 3.0 L Active Medications Generic Name Dose Route Start Last Admin Trade Name Freq PRN Reason Stop Dose Admin Acetaminophen 650 mg 01/02/17 11:10 Tylenol - PO Q6H PRN FEVER OR PAIN Albuterol Sulfate 1 amp 01/02/17 01:34 Ventolin 0.083% Nebulizer Soln - NEB Q4H PRN SHORT OF BREATH/WHEEZING Cefepime HCl 2 gm 01/02/17 11:15 01/02/17 12:16 Maxipime 2gm Ivpb (Pre-Docked) IVPB 2 gm Q8H-IV GELY Administration Protocol Clotrimazole 1 applic 01/02/17 11:00 Lotrisone Cream (Small Tube) TP BID GELY Sodium Chloride 1,000 mls @ 75 mls/hr 01/02/17 11:02 01/02/17 12:15 Normal Saline - IV 75 mls/hr ASDIR GELY Administration Ondansetron HCl 4 mg 01/02/17 01:34 Zofran Injection IVPB Q6H PRN NAUSEA Pantoprazole Sodium 40 mg 01/02/17 11:15 01/02/17 12:16 Protonix - PO 40 mg DAILY GELY Administration IMAGES: Chest X-ray (01/01/17): No acute pathology ASSESSMENT/PLAN: Patient is a 51 year old female with a PMHx of breast cancer on chemotherapy with first treatment done 12/25/16 who presented for a low grade fever of 100.3 F and was told by her oncologist, Dr. Webb, to come to the ED if she was to have a fever. Patient admitted for further monitoring and management Low Grade fever with Lymphocytosis and monocytosis -Afebrile since admission -Leukocytosis today >14 -Does no meet SIRS criteria -Chest X-ray negative -U/A negative -Was given Zosyn and Vancomycin in the ED -Cefepime 2gm daily Q8H until cultures return -Blood and urine cultures pend -Will continue supportive care with IV NS @150mls/hr -Will continue Tylenol PRN -Will continue Zofran PRN -Will continue Robitussin PRNing -ID and Oncology consult appreciated Right Breast Cancer -S/P Myomectomy on chemotherapy -First treatment on 12/25/16 -Continue to monitor CBC -Heme/Onco consult appreciated F/E/N -IV NS @150mls/hr -Electrolytes wnl -Regular Diet Prophylaxis -SCD's and EAM for DVT Disposition -Will continue Observation and waiting for cultures Visit type - Emergency Visit Emergency Visit: Yes ED Registration Date: 01/02/17 Care time: The patient presented to the Emergency Department on the above date and was hospitalized for further evaluation of their emergent condition. - New Patient This patient is new to me today: No - Critical Care Critical Care patient: No
[2017-01-02 13:45] LABS: METAMYELOCYTE 2 % (0-2); PLATELET ESTIMATE ADEQUATE (NORMAL)
[2017-01-02] MEDS: CLOTRIMAZOLE/BETAMET DIPROP 15 GM TUBE TP SCH ×2 (14:05→22:38)
--- NOTE | 2017-01-02 18:30 | PN ---
Teaching Attending Note Name of Resident: Lesley Ojeda ATTENDING PHYSICIAN STATEMENT I saw and evaluated the patient. I reviewed the resident's note and discussed the case with the resident. I agree with the resident's findings and plan as documented. SUBJECTIVE: No complaints. OBJECTIVE: Vital Signs Period Temp Pulse Resp BP Sys/Diaz Pulse Ox Last 24 Hr 98.3 F-100.3 F 76-92 16-18 90-116/50-67 96-100 HEART: S1 S2, RRR LUNGS: Clear ABDOMEN: Soft, non-tender, non-distended, normal BS EXTREMITIES: No edema ASSESSMENT AND PLAN: This is a 51-year-old woman with a history of breast cancer who started chemotherapy last week (last treatment 12/25) who presented to the ER with fever. 1. Fever s/p chemotherapy - Patient not neutropenic - ID consult appreciated - Continue Cefepime, IV fluid - Follow up blood and urine cultures 2. Right breast cancer
[2017-01-02] MEDS: CEFEPIME 1 GM/100 ML BAG PRE-DOCKED IVPB SCH (22:36)
--- NOTE | 2017-01-02 22:45 | CONSULT ---
Consult - text type - Consultation Consultation Note: PAtient seen and examined 51 y/o female well known to our service, with h/o T2, N0 breast cancer, comes in with low grade fevers upto 100.9 at home. No chills/cough/SOB/abdominal pain/ diarrhea/urinaary symptoms. Has some itching in the perineal area ni vaginal discharge/urinary symptoms Also with bone pains PMH Vertebral disk disease breast cancer SH prior smoker Last Vital Signs Temp Pulse Resp BP Pulse Ox 98 F 86 18 87/50 99 01/03/17 01:59 01/03/17 01:59 01/03/17 01:59 01/03/17 01:59 01/02/17 11:04 Cor: RSR, No murmurs, No gallops Lungs: Clear to P&A Abd: Soft, Normal bowel sounds, No organomegaly Ext:No significant edema Abnormal Lab Results 01/02/17 01/02/17 01/03/17 10:45 10:45 02:05 WBC 14.2 H D 36.9 H* D RBC 3.59 L 3.47 L Neutrophils % 36.0 L D Monocytes % 21.0 H Anion Gap 5 L BUN 6 L Calcium 8.4 L Total Protein 5.8 L Albumin 3.0 L Active Medications Generic Name Dose Route Start Last Admin Trade Name Freq PRN Reason Stop Dose Admin Acetaminophen 650 mg 01/02/17 11:10 01/03/17 03:10 Tylenol - PO 650 mg Q6H PRN Administration FEVER OR PAIN Albuterol Sulfate 1 amp 01/02/17 01:34 Ventolin 0.083% Nebulizer Soln - NEB Q4H PRN SHORT OF BREATH/WHEEZING Cefepime HCl 1 gm 01/02/17 22:00 01/02/17 22:36 Maxipime 1gm Ivpb Pre-Docked IVPB 1 gm BID GELY Administration Protocol Clotrimazole 1 applic 01/02/17 11:00 01/02/17 22:38 Lotrisone Cream (Small Tube) TP 1 applic BID GELY Administration Sodium Chloride 1,000 mls @ 50 mls/hr 01/02/17 16:59 01/02/17 17:19 Normal Saline - IV 50 mls/hr ASDIR GELY Administration Ondansetron HCl 4 mg 01/02/17 01:34 Zofran Injection IVPB Q6H PRN NAUSEA Pantoprazole Sodium 40 mg 01/02/17 11:15 01/02/17 12:16 Protonix - PO 40 mg DAILY GELY Administration A/P 51 y/o patient with h/o breast cancer, s/p taxotere/cytoxan , s/p neulasta, comes in with low grade fevers. No obvious localizing signs On empiric antibiotics, pending cultures will d/c antibiotics if cultures neg. C1 D9 WBC rising with Lt. shift --- Most likely due to growth factor, neulasta Bone pains --neulasta If culture negative will probably d/c home , with close f/u in the office
[2017-01-03] MEDS ORDERED: SODIUM CHLORIDE 1,000 ML IV STA (01:46)
[2017-01-03 02:48] LABS: MCH 32.2 pg (25.7-33.7); MCHC 33.7 g/dl (32.0-36.0); MEAN CELL VOLUME 95.7 fl (80-96); MEAN PLT VOLUME 9.3 fl (7.5-11.1); PLATELET COUNT 227 K/MM3 (134-434); RDW 13.2 % (11.6-15.6)
[2017-01-03 02:52] LABS: WHITE BLOOD COUNT 36.9 K/mm3 (4.0-10.0)
[2017-01-03] MEDS: ACETAMINOPHEN 325 MG TABLET (FP) PO PRN (03:10)
[2017-01-03 05:57] LABS: ANISOCYTOSIS FEW; METAMYELOCYTE 1 % (0-2); PLATELET ESTIMATE ADEQUATE (NORMAL)
--- NOTE | 2017-01-03 08:03 | PN ---
Progress Note, Physician Chief Complaint: ID She looks and feels well No complaints Cefepime day 1 threrapy Concerned her BP 79/41 but not "toxic appearing" or febrile in fact fever down now and never high to begin with - Current Medication List Current Medications: Active Medications Acetaminophen (Tylenol -) 650 mg PO Q6H PRN PRN Reason: FEVER OR PAIN Last Admin: 01/03/17 03:10 Dose: 650 mg Albuterol Sulfate (Ventolin 0.083% Nebulizer Soln -) 1 amp NEB Q4H PRN PRN Reason: SHORT OF BREATH/WHEEZING Cefepime HCl (Maxipime 1gm Ivpb Pre-Docked) 1 gm IVPB BID GELY PRN Reason: Protocol Last Admin: 01/02/17 22:36 Dose: 1 gm Clotrimazole (Lotrisone Cream (Small Tube)) 1 applic TP BID [facility] Last Admin: 01/02/17 22:38 Dose: 1 applic Sodium Chloride (Normal Saline -) 1,000 mls @ 125 mls/hr IV ASDIR [facility] Ondansetron HCl (Zofran Injection) 4 mg IVPB Q6H PRN PRN Reason: NAUSEA Pantoprazole Sodium (Protonix -) 40 mg PO DAILY [facility] Last Admin: 01/02/17 12:16 Dose: 40 mg - Objective Vital Signs: Vital Signs Temperature 98.5 F 01/03/17 06:13 Pulse Rate 85 01/03/17 06:13 Respiratory Rate 20 01/03/17 06:13 Blood Pressure 79/41 01/03/17 06:13 O2 Sat by Pulse Oximetry (%) 99 01/02/17 21:00 Constitutional: Yes: Well Nourished, No Distress HENT: Yes: WNL, Atraumatic Neck: Yes: WNL, Supple Cardiovascular: Yes: Regular Rate and Rhythm, S1, S2, Other (Port) Respiratory: Yes: WNL, Regular, CTA Bilaterally. No: Rales, Rhonchi Gastrointestinal: Yes: WNL, Normal Bowel Sounds, Soft. No: Tenderness, Tenderness, Epigastrium Edema: No Labs: CBC, BMP 01/03/17 02:05 INR, PTT INR 1.04 (0.82-1.09) 01/01/17 22:32 Problem List - Problems (1) Fever Code(s): R50.9 - FEVER, UNSPECIFIED Qualifiers: Fever type: unspecified Qualified Code(s): R50.9 - Fever, unspecified (2) Breast cancer, right Code(s): C50.911 - MALIGNANT NEOPLASM OF UNSP SITE OF RIGHT FEMALE BREAST Qualifiers: Breast location: upper outer quadrant of breast Patient sex: female Qualified Code(s): C50.411 - Malignant neoplasm of upper-outer quadrant of right female breast; Z17.0 - Estrogen receptor positive status [ER+] Assessment/Plan Microbiology 01/01/17 22:32 Blood - Peripheral Venous Blood Culture - Preliminary NO GROWTH OBTAINED AFTER 24 HOURS, INCUBATION TO CONTINUE FOR 4 DAYS. 01/01/17 22:15 Blood - Peripheral Venous Blood Culture - Preliminary NO GROWTH OBTAINED AFTER 24 HOURS, INCUBATION TO CONTINUE FOR 4 DAYS. Laboratory Tests 01/01/17 01/03/17 17:25 02:05 WBC 36.9 H* D Hgb 11.2 Plt Count 227 Ur Leukocyte Esterase Negative Urine RBC 3 Urine WBC 1 Assessment Breast CA Cycle 1 Taxotere Cytoxin Fever post chemotherapy no source PPD positive by history Low BP Plan Continue Cefepime Elevated WBC growth factor related NO sepsis or documented infection IVF Place PPD prior to discharge Christ MOSQUEDA
[2017-01-03 08:22] LABS: CALCIUM 8.5 mg/dL (8.5-10.1); COCKROFT - GAULT 93.5255; CREATININE 0.8 mg/dL (0.55-1.02)
[2017-01-03] MEDS: PANTOPRAZOLE 40 MG TABLET (FP) PO SCH (10:20)
[2017-01-03] MEDS: CEFEPIME 1 GM/100 ML BAG PRE-DOCKED IVPB SCH ×2 (10:20→21:29)
[2017-01-03] MEDS: CLOTRIMAZOLE/BETAMET DIPROP 15 GM TUBE TP SCH ×3 (10:21→21:31)
[2017-01-03] MEDS: SODIUM CHLORIDE 1,000 ML IV SCH ×3 (10:21→23:54)
--- NOTE | 2017-01-03 11:15 | PN ---
Teaching Attending Note Name of Resident: Lesley Ojeda ATTENDING PHYSICIAN STATEMENT I saw and evaluated the patient. I reviewed the resident's note and discussed the case with the resident. I agree with the resident's findings and plan as documented. SUBJECTIVE: Patient reports lightheadedness and blurred vision overnight. OBJECTIVE: Vital Signs Period Temp Pulse Resp BP Sys/Diaz Pulse Ox Last 24 Hr 98 F-99.5 F 85-98 18-20 79-106/41-57 99 HEART: S1 S2, RRR LUNGS: Clear ABDOMEN: Soft, non-tender, non-distended, normal BS EXTREMITIES: No edema ASSESSMENT AND PLAN: This is a 51-year-old woman with a history of breast cancer who started chemotherapy last week (last treatment 12/25) who presented to the ER with fever. 1. Fever s/p chemotherapy - Patient not neutropenic on presentation - Leukocytosis likely secondary to Neulasta - On Cefepime empirically - Continue IV fluid - Blood and urine cultures negative 2. Hypotension - Improving - Continue IV fluid 3. Right breast cancer
--- NOTE | 2017-01-03 12:32 | CON.PULM ---
Consult Consult Specialty:: PULM/CCM Referred by:: BRIANA Reason for Consultation:: hypotension - History of Present Illness Chief Complaint: S/P chemo History of Present Illness: 51 F, breast cancer S/P taxotere/cytoxan the previous week and Neulasta last Thursday. Called for hypotension that was observed overnight on routine check of her vitals. Patient is awake and alert. No clear sign of infection. She does not have tachycardia. No CP or SOB. She is able ambulate to the bathroom without dizziness, ROSE, etc. Currently her blood pressure has improved with roughly 600cc of NS. CXR: clear - History Source History Provided By: Patient Limitations to Obtaining History: No Limitations - Past Medical History ...LMP: 08/10/15 Musculoskeletal: Yes: Other (Herniated disc cervical) Additional Medical History: seasonal allergies - Past Surgical History Past Surgical History: Yes: Hernia Repair (inguinal 1989) - Alcohol/Substance Use Hx Alcohol Use: No - Smoking History Smoking history: Former smoker Have you smoked in the past 12 months: Yes Aproximately how many cigarettes per day: 5 Home Medications - Allergies Allergies/Adverse Reactions: Allergies Allergy/AdvReac Type Severity Reaction Status Date / Time Latex, Natural Rubber Allergy Rash Verified 01/01/17 22:53 - Home Medications Home Medications: Ambulatory Orders Unobtainable [Unobtainable] 01/01/17 Family Disease History - Family Disease History Family Disease History: CA: Grandparent (paternal GM breast ca 85), Mother ( ovarian cancer 60) Review of Systems - Review of Systems Constitutional: denies: Chills, Fever, Loss of Appetite, Malaise, Night Sweats, Weakness Eyes: reports: No Symptoms HENT: reports: No Symptoms Neck: reports: No Symptoms Cardiovascular: reports: No Symptoms Respiratory: reports: No Symptoms Gastrointestinal: reports: No Symptoms Genitourinary: reports: No Symptoms Musculoskeletal: reports: No Symptoms Integumentary: reports: No Symptoms Neurological: reports: No Symptoms Endocrine: reports: No Symptoms Hematology/Lymphatic: reports: No Symptoms Psychiatric: reports: No Symptoms Physical Exam Vital Sings: Vital Signs Temperature 98.5 F 01/03/17 06:13 Pulse Rate 85 01/03/17 06:13 Respiratory Rate 20 01/03/17 06:13 Blood Pressure 79/41 01/03/17 06:13 O2 Sat by Pulse Oximetry (%) 99 01/02/17 21:00 Constitutional: Yes: No Distress, Anxious Eyes: Yes: WNL, Conjunctiva Clear HENT: Yes: WNL, Atraumatic, Normocephalic Neck: Yes: WNL, Supple, Trachea Midline Cardiovascular: Yes: WNL, Regular Rate and Rhythm Respiratory: Yes: WNL, Regular, CTA Bilaterally ...Inspection: Yes: WNL ...Clubbing: No Gastrointestinal: Yes: WNL, Normal Bowel Sounds, Soft Renal/: Yes: WNL Musculoskeletal: Yes: WNL Extremities: Yes: WNL Edema: No Peripheral Pulses WNL: Yes Integumentary: Yes: WNL Neurological: Yes: WNL, Alert, Oriented ...Motor Strength: WNL Psychiatric: Yes: WNL, Alert, Oriented Labs: CBC, BMP 01/03/17 02:05 01/03/17 06:00 Imaging - Results Chest X-ray: Report Reviewed, Image Reviewed Problem List - Problems (1) Breast cancer, right Code(s): C50.911 - MALIGNANT NEOPLASM OF UNSP SITE OF RIGHT FEMALE BREAST (2) Hypotension Code(s): I95.9 - HYPOTENSION, UNSPECIFIED (3) Capillary leak syndrome Code(s): I78.8 - OTHER DISEASES OF CAPILLARIES Assessment/Plan PLAN: Agree with IVF At this time the patient is asymptomatic and her BP has improved. Likely a combination of slight volume depletion, noturnal normal "dipping" of BP , and CLS (low clinical suspicion but can be seen with Neulasta) No indication of Pulmonary CLS No indication for adrenal insufficiency At this time can safely be managed/monitored on the medical floor. Will follow Please call for any change in condition Thank you. Dr Ozuna
--- NOTE | 2017-01-03 12:32 | PN ---
Progress Note (short form) - Note Progress Note: Progress Note: Patient seen in follow up. Hypotensive overnight, but largely asymptomatic. Reports some visual blurring at this time. Meds reviewed. Current Medications Generic Name Dose Route Start Last Admin Trade Name Freq PRN Reason Stop Dose Admin Acetaminophen 650 mg 01/02/17 11:10 01/03/17 03:10 Tylenol - PO 650 mg Q6H PRN Administration FEVER OR PAIN Albuterol Sulfate 1 amp 01/02/17 01:34 Ventolin 0.083% Nebulizer Soln - NEB Q4H PRN SHORT OF BREATH/WHEEZING Cefepime HCl 1 gm 01/02/17 22:00 01/03/17 10:20 Maxipime 1gm Ivpb Pre-Docked IVPB 1 gm BID GELY Administration Protocol Clotrimazole 1 applic 01/02/17 11:00 01/03/17 10:21 Lotrisone Cream (Small Tube) TP 1 applic BID GELY Administration Sodium Chloride 1,000 mls @ 125 mls/hr 01/03/17 04:45 01/03/17 10:21 Normal Saline - IV 125 mls/hr ASDIR GELY Administration Ondansetron HCl 4 mg 01/02/17 01:34 Zofran Injection IVPB Q6H PRN NAUSEA Pantoprazole Sodium 40 mg 01/02/17 11:15 01/03/17 10:20 Protonix - PO 40 mg DAILY GELY Administration On examination: Last Vital Signs Temp Pulse Resp BP Pulse Ox 98.5 F 85 20 79/41 99 01/03/17 06:13 01/03/17 06:13 01/03/17 06:13 01/03/17 06:13 01/02/17 21:00 General: In no acute distress. Oropharyngeal: No signs mucosal hemorrhage, no mucosal lesions. Extremities: Pallor, no icterus, no pedal edema. Chest:good air entry bilaterally, clear. Abdomen: Soft, no organomegaly, no masses. Neuro: Alert and oriented, non-focal. CVS: Normal sinus rhythm, S1, S2, no gallop or murmur. Skin: No rash Labs reviewed: CBC, BMP 01/03/17 02:05 01/03/17 06:00 Assessment: S/P 1 st cycle adjuvant chemotherapy (Taxotere/Cytoxan) for early breast cancer , admitted for low-grade fever (now resolved), and hypotension. Cultures negative. On empiric antibiotics. IV fluids PRN for hypotension. Consider cardiac evaluation of hypotensive episodes persist. Profound left shifted neutrophilia attributable to recent G-CSF - observe. Will observe for now. Unclear significance of visual symptoms - observe. No documented neutropenia.
--- NOTE | 2017-01-03 16:05 | PN ---
Physical Exam: SUBJECTIVE: Patient seen and examined by me at bedside. Patient was hypotensive overnight but with no symptoms. Patient today complains of some blurry vision that started this morning. Otherwise, patient denies fever, chills, nausea, vomiting, abdominal pain, chest pain, palpitations, shortness of breath. OBJECTIVE: Vital Signs Period Temp Pulse Resp BP Sys/Diaz Pulse Ox Last 24 Hr 98 F-99.5 F 85-98 18-20 79-110/41-62 99 GENERAL: The patient is awake, alert, and fully oriented, in no acute distress. EYES: Sclera anicteric, conjunctiva clear. ENT: Moist mucous membranes. LUNGS: Breath sounds equal, clear to auscultation bilaterally, no wheezes, no crackles, no accessory muscle use. HEART: Regular rate and rhythm, S1, S2 without murmur, rub or gallop. ABDOMEN: Soft, nontender, nondistended, normoactive bowel sounds. EXTREMITIES: No peripheral edema. SKIN: Warm, dry, normal turgor, no rashes or lesions noted Laboratory Results - last 24 hr 01/03/17 01/03/17 01/03/17 02:05 06:00 06:00 WBC 36.9 H* D RBC 3.47 L Hgb 11.2 Hct 33.2 MCV 95.7 MCHC 33.7 RDW 13.2 Plt Count 227 MPV 9.3 Neutrophils % 15.0 L D Lymphocytes % 18.0 D Monocytes % 21.0 H Band Neutrophils 41.0 H D Metamyelocytes 1 D Myelocytes 2 D Platelet Estimate Adequate Anisocytosis Few Sickle Cell Screen Negative Sodium 145 Potassium 3.9 Chloride 107 Carbon Dioxide 25 Anion Gap 13 BUN 6 L Creatinine 0.8 Random Glucose 69 L D Calcium 8.5 Rheumatoid Factor 01/03/17 06:00 WBC RBC Hgb Hct MCV MCHC RDW Plt Count MPV Neutrophils % Lymphocytes % Monocytes % Band Neutrophils Metamyelocytes Myelocytes Platelet Estimate Anisocytosis Sickle Cell Screen Sodium Potassium Chloride Carbon Dioxide Anion Gap BUN Creatinine Random Glucose Calcium Rheumatoid Factor < 10.0 Active Medications Generic Name Dose Route Start Last Admin Trade Name Freq PRN Reason Stop Dose Admin Acetaminophen 650 mg 01/02/17 11:10 01/03/17 03:10 Tylenol - PO 650 mg Q6H PRN Administration FEVER OR PAIN Albuterol Sulfate 1 amp 01/02/17 01:34 Ventolin 0.083% Nebulizer Soln - NEB Q4H PRN SHORT OF BREATH/WHEEZING Cefepime HCl 1 gm 01/02/17 22:00 01/03/17 10:20 Maxipime 1gm Ivpb Pre-Docked IVPB 1 gm BID GELY Administration Protocol Clotrimazole 1 applic 01/02/17 11:00 01/03/17 10:21 Lotrisone Cream (Small Tube) TP 1 applic BID GELY Administration Sodium Chloride 1,000 mls @ 125 mls/hr 01/03/17 04:45 01/03/17 10:21 Normal Saline - IV 125 mls/hr ASDIR GELY Administration Ondansetron HCl 4 mg 01/02/17 01:34 Zofran Injection IVPB Q6H PRN NAUSEA Pantoprazole Sodium 40 mg 01/02/17 11:15 01/03/17 10:20 Protonix - PO 40 mg DAILY GELY Administration IMAGES: Chest X-ray (01/01/17): No acute pathology ASSESSMENT/PLAN: Patient is a 51 year old female with a PMHx of breast cancer on chemotherapy with first treatment done 12/25/16 who presented for a low grade fever of 100.3 F and was told by her oncologist, Dr. Webb, to come to the ED if she was to have a fever. Patient admitted for further monitoring and management Low Grade fever with Lymphocytosis and monocytosis s/p Chemotherapy -S/P first cycle adjuvant chemotherapy (Taxotere/Cytoxan)on 12/25/16 -G-CSF given on 12/30/16 -Afebrile since admission -Leukocytosis today 36.9 -Cefepime 1gm daily Q8H until cultures final -Blood cultures NGTD -Urine cultures negative -Continue supportive care with IV NS @125mls/hr -Continue Tylenol PRN -Continue Zofran PRN -Continue Robitussin PRN -ID and Oncology consult appreciated Hypotension -Patient given IV NS Bolus and maintenance -Improving -Had some blurry vision which could be related to the hypoperfusion -Will continue to monitor Right Breast Cancer -S/P Myomectomy on chemotherapy -Continue to monitor CBC -Heme/Onco consult appreciated F/E/N -IV NS @120mls/hr -Electrolytes wnl -Regular Diet Prophylaxis -SCD's and EAM for DVT Disposition -Will continue Observation and waiting for cultures Visit type - Emergency Visit Emergency Visit: Yes ED Registration Date: 01/04/17 Care time: The patient presented to the Emergency Department on the above date and was hospitalized for further evaluation of their emergent condition. - New Patient This patient is new to me today: No - Critical Care Critical Care patient: No
[2017-01-04] MEDS ORDERED: SODIUM CHLORIDE 500 ML IV STA (01:38)
[2017-01-04] MEDS: SODIUM CHLORIDE 1,000 ML IV SCH ×3 (05:33→21:04)
[2017-01-04 07:39] LABS: MCH 32.2 pg (25.7-33.7); MCHC 33.7 g/dl (32.0-36.0); MEAN CELL VOLUME 95.8 fl (80-96); MEAN PLT VOLUME 8.7 fl (7.5-11.1); PLATELET COUNT 203 K/MM3 (134-434); RDW 13.6 % (11.6-15.6)
[2017-01-04 07:44] LABS: WHITE BLOOD COUNT 42.7 K/mm3 (4.0-10.0)
--- NOTE | 2017-01-04 08:01 | PN ---
Progress Note, Physician Chief Complaint: ID Remains stable no complaints Issues regarding low BP being addresses not sepsis related Cefepime - Current Medication List Current Medications: Active Medications Acetaminophen (Tylenol -) 650 mg PO Q6H PRN PRN Reason: FEVER OR PAIN Last Admin: 01/03/17 03:10 Dose: 650 mg Albuterol Sulfate (Ventolin 0.083% Nebulizer Soln -) 1 amp NEB Q4H PRN PRN Reason: SHORT OF BREATH/WHEEZING Cefepime HCl (Maxipime 1gm Ivpb Pre-Docked) 1 gm IVPB BID [facility] PRN Reason: Protocol Last Admin: 01/03/17 21:29 Dose: 1 gm Clotrimazole (Lotrisone Cream (Small Tube)) 1 applic TP BID [facility] Last Admin: 01/03/17 21:31 Dose: 1 applic Sodium Chloride (Normal Saline -) 1,000 mls @ 125 mls/hr IV ASDIR [facility] Last Admin: 01/04/17 05:33 Dose: 125 mls/hr Ondansetron HCl (Zofran Injection) 4 mg IVPB Q6H PRN PRN Reason: NAUSEA Pantoprazole Sodium (Protonix -) 40 mg PO DAILY [facility] Last Admin: 01/03/17 10:20 Dose: 40 mg - Objective Vital Signs: Vital Signs Temperature 98.7 F 01/04/17 05:58 Pulse Rate 81 01/04/17 05:58 Respiratory Rate 20 01/04/17 05:58 Blood Pressure 101/57 01/04/17 05:58 O2 Sat by Pulse Oximetry (%) 99 01/04/17 02:44 Constitutional: Yes: Well Nourished, No Distress HENT: Yes: WNL, Atraumatic Neck: Yes: WNL, Supple Respiratory: Yes: WNL, Regular, CTA Bilaterally Gastrointestinal: Yes: WNL, Normal Bowel Sounds, Soft Edema: No Labs: CBC, BMP 01/04/17 06:00 INR, PTT INR 1.04 (0.82-1.09) 01/01/17 22:32 Problem List - Problems (1) Fever Code(s): R50.9 - FEVER, UNSPECIFIED Qualifiers: Fever type: unspecified Qualified Code(s): R50.9 - Fever, unspecified (2) Breast cancer, right Code(s): C50.911 - MALIGNANT NEOPLASM OF UNSP SITE OF RIGHT FEMALE BREAST Qualifiers: Breast location: upper outer quadrant of breast Patient sex: female Qualified Code(s): C50.411 - Malignant neoplasm of upper-outer quadrant of right female breast; Z17.0 - Estrogen receptor positive status [ER+] Assessment/Plan Microbiology 01/01/17 17:25 Urine - Urine Clean Catch Urine Culture - Final NO GROWTH OBTAINED 01/01/17 22:32 Blood - Peripheral Venous Blood Culture - Preliminary NO GROWTH OBTAINED AFTER 48 HOURS, INCUBATION TO CONTINUE FOR 3 DAYS. 01/01/17 22:15 Blood - Peripheral Venous Blood Culture - Preliminary NO GROWTH OBTAINED AFTER 48 HOURS, INCUBATION TO CONTINUE FOR 3 DAYS. Laboratory Tests 01/04/17 06:00 WBC 42.7 H* Hgb 10.3 L Hct 30.7 L Plt Count 203 Assessment Breast CA Post Cycle 1 chemotherapy Hypotension ? growth factor related Fever resolved PPD by history Plan Stop Cefepime Discharge planning Place PPD today and follow up with me Christ MOSQUEDA
[2017-01-04 08:15] LABS: ALBUMIN 2.6 g/dl (3.4-5.0); ANION GAP 6 (8-16); CALCIUM 8.5 mg/dL (8.5-10.1); CO2 28 mmol/L (21-32); COCKROFT - GAULT 106.8875; CREATININE 0.7 mg/dL (0.55-1.02); GLUCOSE,RANDOM 71 mg/dL (74-106); SGOT/AST 24 U/L (15-37); SGPT/ALT 13 U/L (12-78)
[2017-01-04 08:25] LABS: ALK PHOS 130 U/L (45-117); BILIRUBIN,TOTAL 0.2 mg/dL (0.2-1.0); TOT PROT 5.1 g/dl (6.4-8.2)
[2017-01-04 09:20] LABS: METAMYELOCYTE 4 % (0-2)
[2017-01-04 09:21] LABS: DOHLE BODIES 1+; PLATELET ESTIMATE ADEQUATE (NORMAL); TOXIC GRANULATION 1+
--- NOTE | 2017-01-04 10:35 | PN ---
Physical Exam: SUBJECTIVE: Patient seen and examined. She complains of lightheadedness. OBJECTIVE: Vital Signs Period Temp Pulse Resp BP Sys/Diaz Pulse Ox Last 24 Hr 98.5 F-98.9 F 80-97 20-20 82-111/39-68 91-99 GENERAL: The patient is awake, alert, fully oriented, anxious. LUNGS: Breath sounds equal, clear to auscultation bilaterally, no wheezes, no crackles, no accessory muscle use. HEART: Regular rate and rhythm, S1, S2 without murmur, rub or gallop. ABDOMEN: Soft, nontender, nondistended, normoactive bowel sounds, no guarding, no rebound, no hepatosplenomegaly, no masses. EXTREMITIES: 2+ pulses, warm, well-perfused, no edema. Laboratory Results - last 24 hr 01/03/17 01/04/17 01/04/17 06:00 06:00 06:00 WBC 42.7 H* RBC 3.20 L Hgb 10.3 L Hct 30.7 L MCV 95.8 MCHC 33.7 RDW 13.6 Plt Count 203 MPV 8.7 Neutrophils % 63.0 D Lymphocytes % 11.0 D Monocytes % 2.0 L D Band Neutrophils 13.0 H D Metamyelocytes 4 H D Myelocytes 4 H D Promyelocytes 3 H D Toxic Granulation 1+ Dohle Bodies 1+ Platelet Estimate Adequate Platelet Comment No clumping noted Sodium 145 Potassium 3.7 Chloride 111 H Carbon Dioxide 28 Anion Gap 6 L BUN 5 L Creatinine 0.7 Creat Clearance w eGFR > 60 Random Glucose 71 L Calcium 8.5 Total Bilirubin 0.2 D AST 24 ALT 13 Alkaline Phosphatase 130 H D Total Protein 5.1 L Albumin 2.6 L TSH 1.70 Free T4 1.20 Rheumatoid Factor < 10.0 01/04/17 06:00 WBC RBC Hgb Hct MCV MCHC RDW Plt Count MPV Neutrophils % Lymphocytes % Monocytes % Band Neutrophils Metamyelocytes Myelocytes Promyelocytes Toxic Granulation Dohle Bodies Platelet Estimate Platelet Comment Sodium Potassium Chloride Carbon Dioxide Anion Gap BUN Creatinine Creat Clearance w eGFR Random Glucose Calcium Total Bilirubin AST ALT Alkaline Phosphatase Total Protein Albumin TSH Free T4 Cancelled Rheumatoid Factor Active Medications Generic Name Dose Route Start Last Admin Trade Name Freq PRN Reason Stop Dose Admin Acetaminophen 650 mg 01/02/17 11:10 01/03/17 03:10 Tylenol - PO 650 mg Q6H PRN Administration FEVER OR PAIN Albuterol Sulfate 1 amp 01/02/17 01:34 Ventolin 0.083% Nebulizer Soln - NEB Q4H PRN SHORT OF BREATH/WHEEZING Clotrimazole 1 applic 01/02/17 11:00 01/03/17 21:31 Lotrisone Cream (Small Tube) TP 1 applic BID GELY Administration Sodium Chloride 1,000 mls @ 125 mls/hr 01/03/17 04:45 01/04/17 05:33 Normal Saline - IV 125 mls/hr ASDIR GELY Administration Ondansetron HCl 4 mg 01/02/17 01:34 Zofran Injection IVPB Q6H PRN NAUSEA Pantoprazole Sodium 40 mg 01/02/17 11:15 01/03/17 10:20 Protonix - PO 40 mg DAILY GELY Administration ASSESSMENT/PLAN: This is a 51-year-old woman with a history of breast cancer who started chemotherapy last week (last treatment 12/25) who presented to the ER with fever. 1. Fever s/p chemotherapy - Patient not neutropenic on presentation - Blood and urine cultures negative - Cefepime discontinued 2. Leukocytosis secondary to Neulasta 3. Hypotension - BP 80/40 this morning and patient is feeling lightheaded - Possible capillary leak syndrome secondary to Neulasta - Continue IV fluid 4. Right breast cancer Visit type - Emergency Visit Emergency Visit: Yes ED Registration Date: 01/02/17 Care time: The patient presented to the Emergency Department on the above date and was hospitalized for further evaluation of their emergent condition. - New Patient This patient is new to me today: No - Critical Care Critical Care patient: No - Discharge Referral Referred to [facility] Med P.C.: No
[2017-01-04] MEDS: PANTOPRAZOLE 40 MG TABLET (FP) PO SCH (10:45)
[2017-01-04] MEDS: CLOTRIMAZOLE/BETAMET DIPROP 15 GM TUBE TP SCH ×2 (10:46→21:06)
[2017-01-04] MEDS ORDERED: TUBERCULIN PPD 5 TU/0.1ML SYRINGE (IN PATIENT USE ONLY) ID ONE (11:00)
--- NOTE | 2017-01-04 12:50 | PN ---
Progress Note (short form) - Note Progress Note: Feels fine today. BP reviewed. General trend better. Remains asymptomatic. No tachycardia. No CP or SOB. She is able ambulate to the bathroom without dizziness, ROSE, etc. Intake & Output 01/01/17 01/02/17 01/03/17 01/04/17 23:59 23:59 23:59 23:59 Intake Total 8411 403 4985 Balance 3220 454 0967 Weight 157 lb Last Vital Signs Temp Pulse Resp BP Pulse Ox 98.8 F 90 20 80/40 99 01/04/17 09:00 01/04/17 09:00 01/04/17 09:00 01/04/17 09:00 01/04/17 02:44 Active Medications Acetaminophen (Tylenol -) 650 mg PO Q6H PRN PRN Reason: FEVER OR PAIN Last Admin: 01/03/17 03:10 Dose: 650 mg Albuterol Sulfate (Ventolin 0.083% Nebulizer Soln -) 1 amp NEB Q4H PRN PRN Reason: SHORT OF BREATH/WHEEZING Clotrimazole (Lotrisone Cream (Small Tube)) 1 applic TP BID [facility] Last Admin: 01/04/17 10:46 Dose: 1 applic Sodium Chloride (Normal Saline -) 1,000 mls @ 125 mls/hr IV ASDIR [facility] Last Admin: 01/04/17 05:33 Dose: 125 mls/hr Ondansetron HCl (Zofran Injection) 4 mg IVPB Q6H PRN PRN Reason: NAUSEA Pantoprazole Sodium (Protonix -) 40 mg PO DAILY [facility] Last Admin: 01/04/17 10:45 Dose: 40 mg Constitutional: Yes: No Distress Eyes: Yes: WNL, Conjunctiva Clear HENT: Yes: WNL, Atraumatic, Normocephalic Neck: Yes: WNL, Supple, Trachea Midline Cardiovascular: Yes: WNL, Regular Rate and Rhythm Respiratory: Yes: WNL, Regular, CTA Bilaterally ...Inspection: Yes: WNL ...Clubbing: No Gastrointestinal: Yes: WNL, Normal Bowel Sounds, Soft Renal/: Yes: WNL Musculoskeletal: Yes: WNL Extremities: Yes: WNL Edema: No Peripheral Pulses WNL: Yes Integumentary: Yes: WNL Neurological: Yes: WNL, Alert, Oriented ...Motor Strength: WNL Psychiatric: Yes: WNL, Alert, Oriented Labs: Laboratory Results - last 24 hr 01/04/17 01/04/17 01/04/17 06:00 06:00 06:00 WBC 42.7 H* RBC 3.20 L Hgb 10.3 L Hct 30.7 L MCV 95.8 MCHC 33.7 RDW 13.6 Plt Count 203 MPV 8.7 Neutrophils % 63.0 D Lymphocytes % 11.0 D Monocytes % 2.0 L D Band Neutrophils 13.0 H D Metamyelocytes 4 H D Myelocytes 4 H D Promyelocytes 3 H D Toxic Granulation 1+ Dohle Bodies 1+ Platelet Estimate Adequate Platelet Comment No clumping noted Sodium 145 Potassium 3.7 Chloride 111 H Carbon Dioxide 28 Anion Gap 6 L BUN 5 L Creatinine 0.7 Creat Clearance w eGFR > 60 Random Glucose 71 L Calcium 8.5 Total Bilirubin 0.2 D AST 24 ALT 13 Alkaline Phosphatase 130 H D Total Protein 5.1 L Albumin 2.6 L TSH 1.70 Free T4 1.20 Cancelled Problem List - Problems (1) Breast cancer, right Code(s): C50.911 - MALIGNANT NEOPLASM OF UNSP SITE OF RIGHT FEMALE BREAST (2) Hypotension Code(s): I95.9 - HYPOTENSION, UNSPECIFIED (3) Capillary leak syndrome Code(s): I78.8 - OTHER DISEASES OF CAPILLARIES Assessment/Plan IVF Low clinical suspicion for CLS due to Neulasta PO as tolerated Dr Ozuna Problem List - Problems (1) Breast cancer, right Code(s): C50.911 - MALIGNANT NEOPLASM OF UNSP SITE OF RIGHT FEMALE BREAST Qualifiers: Breast location: upper outer quadrant of breast Patient sex: female Qualified Code(s): C50.411 - Malignant neoplasm of upper-outer quadrant of right female breast; Z17.0 - Estrogen receptor positive status [ER+] (2) Hypotension Code(s): I95.9 - HYPOTENSION, UNSPECIFIED (3) Capillary leak syndrome Code(s): I78.8 - OTHER DISEASES OF CAPILLARIES
--- NOTE | 2017-01-04 14:08 | PN ---
Progress Note (short form) - Note Progress Note: Progress Note: Patient seen in follow up. No further significant hypotensive episodes. Meds reviewed. Current Medications Generic Name Dose Route Start Last Admin Trade Name Freq PRN Reason Stop Dose Admin Acetaminophen 650 mg 01/02/17 11:10 01/03/17 03:10 Tylenol - PO 650 mg Q6H PRN Administration FEVER OR PAIN Albuterol Sulfate 1 amp 01/02/17 01:34 Ventolin 0.083% Nebulizer Soln - NEB Q4H PRN SHORT OF BREATH/WHEEZING Clotrimazole 1 applic 01/02/17 11:00 01/04/17 10:46 Lotrisone Cream (Small Tube) TP 1 applic BID GELY Administration Sodium Chloride 1,000 mls @ 125 mls/hr 01/03/17 04:45 01/04/17 13:28 Normal Saline - IV 125 mls/hr ASDIR GELY Administration Ondansetron HCl 4 mg 01/02/17 01:34 Zofran Injection IVPB Q6H PRN NAUSEA Pantoprazole Sodium 40 mg 01/02/17 11:15 01/04/17 10:45 Protonix - PO 40 mg DAILY GELY Administration On examination: Last Vital Signs Temp Pulse Resp BP Pulse Ox 98.8 F 90 20 80/40 99 01/04/17 09:00 01/04/17 09:00 01/04/17 09:00 01/04/17 09:00 01/04/17 02:44 General: In no acute distress. Oropharyngeal: No signs mucosal hemorrhage, no mucosal lesions. Extremities: Pallor, no icterus, no pedal edema. Chest:good air entry bilaterally, clear. Abdomen: Soft, no organomegaly, no masses. Neuro: Alert and oriented, non-focal. CVS: Normal sinus rhythm, S1, S2, no gallop or murmur. Skin: No rash Labs reviewed: CBC, BMP 01/04/17 06:00 01/04/17 06:00 Assessment: S/P 1 st cycle adjuvant chemotherapy (Taxotere/Cytoxan) for early breast cancer , admitted for low-grade fever (now resolved), and hypotension. Cultures negative. IV fluids PRN for hypotension. Consider cardiac evaluation of hypotensive episodes persist. Profound left shifted neutrophilia attributable to recent G-CSF - observe. No documented neutropenia. Believe patient can be discharged home. Follow up with oncology.
[2017-01-04] MEDS: ACETAMINOPHEN 325 MG TABLET (FP) PO PRN (21:03)
[2017-01-05] MEDS: SODIUM CHLORIDE 1,000 ML IV SCH (05:38)
[2017-01-05 07:45] LABS: MCH 32.1 pg (25.7-33.7); MCHC 33.3 g/dl (32.0-36.0); MEAN CELL VOLUME 96.2 fl (80-96); MEAN PLT VOLUME 8.7 fl (7.5-11.1); PLATELET COUNT 194 K/MM3 (134-434); RDW 13.2 % (11.6-15.6); WHITE BLOOD COUNT 26.6 K/mm3 (4.0-10.0)
[2017-01-05 08:11] LABS: CALCIUM 8.6 mg/dL (8.5-10.1); COCKROFT - GAULT 124.7035; CREATININE 0.6 mg/dL (0.55-1.02)
--- NOTE | 2017-01-05 08:51 | PN ---
Teaching Attending Note Name of Resident: Lesley Ojeda ATTENDING PHYSICIAN STATEMENT I saw and evaluated the patient. I reviewed the resident's note and discussed the case with the resident. I agree with the resident's findings and plan as documented. SUBJECTIVE: Patient is comfortable sitting in bed and denies lightheadedness, headache. OBJECTIVE: Vital Signs Period Temp Pulse Resp BP Sys/Diaz Pulse Ox Last 24 Hr 98 F-99.1 F 81-97 20-20 80-134/40-71 99 GENERAL: The patient is awake, alert, fully oriented, anxious. LUNGS: Breath sounds equal, clear to auscultation bilaterally, no wheezes, no crackles, no accessory muscle use. HEART: Regular rate and rhythm, S1, S2 without murmur, rub or gallop. ABDOMEN: Soft, nontender, nondistended, normoactive bowel sounds, no guarding, no rebound, no hepatosplenomegaly, no masses. EXTREMITIES: 2+ pulses, warm, well-perfused, no edema. ASSESSMENT AND PLAN: This is a 51-year-old woman with a history of breast cancer who started chemotherapy last week (last treatment 12/25) who presented to the ER with fever. 1. Fever s/p chemotherapy - Patient not neutropenic on presentation - Blood and urine cultures negative - Cefepime discontinued 2. Leukocytosis secondary to Neulasta 3. Hypotension - Improved - Possible capillary leak syndrome secondary to Neulasta - Discontinue IV fluid 4. Right breast cancer
--- NOTE | 2017-01-05 10:07 | EKG ---
Test Reason : Blood Pressure : / mmHG Vent. Rate : 084 BPM Atrial Rate : 084 BPM P-R Int : 142 ms QRS Dur : 086 ms QT Int : 362 ms P-R-T Axes : 065 052 043 degrees QTc Int : 427 ms NORMAL SINUS RHYTHM NORMAL ECG WHEN COMPARED WITH ECG OF 02-JAN-2017 00:12, NO SIGNIFICANT CHANGE WAS FOUND Confirmed by MERCEDES AKHTAR MD ([id number]) on 01/05/2017 10:07:13 AM Referred By: Greg BETTS Confirmed By:MERCEDES AKHTAR MD
[2017-01-05] MEDS: PANTOPRAZOLE 40 MG TABLET (FP) PO SCH (10:43)
[2017-01-05] MEDS: CLOTRIMAZOLE/BETAMET DIPROP 15 GM TUBE TP SCH ×2 (10:43→21:45)
[2017-01-05 11:22] LABS: METAMYELOCYTE 5 % (0-2); PLATELET ESTIMATE ADEQUATE (NORMAL)
[2017-01-05 13:03] LABS: TROPONIN I < 0.02 ng/ml (0.00-0.05)
--- NOTE | 2017-01-05 13:39 | CON.CARD ---
Consult Consult Specialty:: Cardiology Referred by:: Dr. Islas Heme-onc Reason for Consultation:: Chest pain - History of Present Illness Chief Complaint: Chest pain History of Present Illness: Patient is a 51 y/o female with h/o T2, N0 breast cancer S/P taxotere/cytoxan the previous week and Neulasta last Thursday, admitted with low grade fevers up to 100.9 at home, cultures negative, reports bone pains, episodes of hypotension responsive to fluids, also non-exertional retrostenal chest pressure with mild dyspnea and light-headedness, but denies true syncope, palpitations, orthopnea, PND or LE edema. PMH Vertebral disk disease breast cancer SH prior smoker - History Source History Provided By: Patient Limitations to Obtaining History: No Limitations - Past Medical History ...LMP: 08/10/15 Musculoskeletal: Yes: Other (Herniated disc cervical) Additional Medical History: seasonal allergies - Past Surgical History Past Surgical History: Yes: Hernia Repair (inguinal 1989) - Alcohol/Substance Use Hx Alcohol Use: No - Smoking History Smoking history: Former smoker Have you smoked in the past 12 months: Yes Aproximately how many cigarettes per day: 5 Home Medications - Allergies Allergies/Adverse Reactions: Allergies Allergy/AdvReac Type Severity Reaction Status Date / Time Latex, Natural Rubber Allergy Rash Verified 01/01/17 22:53 - Home Medications Home Medications: Ambulatory Orders Unobtainable [Unobtainable] 01/01/17 Family Disease History - Family Disease History Family Disease History: CA: Grandparent (paternal GM breast ca 85), Mother ( ovarian cancer 60) Review of Systems - Review of Systems Cardiovascular: reports: Chest Pain Vital Signs: Vital Signs Temperature 98.1 F 01/05/17 10:00 Pulse Rate 84 01/05/17 10:00 Respiratory Rate 18 01/05/17 10:00 Blood Pressure 102/59 01/05/17 10:00 O2 Sat by Pulse Oximetry (%) 99 01/04/17 21:00 Constitutional: Yes: No Distress, Calm Neck: Yes: Supple Respiratory: Yes: Regular, CTA Bilaterally Gastrointestinal: Yes: Normal Bowel Sounds, Soft Cardiovascular: Yes: Regular Rate and Rhythm JVD: No Carotid Bruit: No Heart Sounds: Yes: S1, S2 Edema: No - Other Data Labs, Other Data: CBC, BMP 01/05/17 06:00 01/05/17 06:00 INR, PTT INR 1.04 (0.82-1.09) 01/01/17 22:32 Troponin, BNP 01/05/17 12:20 Troponin I < 0.02 Troponin, BNP 01/05/17 12:20 Troponin I < 0.02 NSR @ [address]-T changes Imaging - Results Chest X-ray: Report Reviewed (NAD) Assessment/Plan 1. Chest pain with atypical features (?bony pain from Neulasta vs chemotherapy- associated cardiomyopathy) 2. Hypotension 3. Right breast cancer post chemotherapy and Neulasta 4. Hypotension P:1. Ruling out for MA, check BNP 2. F/u echocardiogram to assess ventricular and valve fxn 3. Hydration as you are 4. Thank you for consultative opportunity
--- NOTE | 2017-01-05 15:04 | PN ---
Progress Note (short form) - Note Progress Note: PAtient seen and examined c/o sternal pain/tightness No cough/phlegm/bowel/bladder symptoms Last Vital Signs Temp Pulse Resp BP Pulse Ox 98.1 F 84 18 102/59 99 01/05/17 10:00 01/05/17 10:00 01/05/17 10:00 01/05/17 10:00 01/04/17 21:00 Cor: RSR, No murmurs, No gallops Lungs: Clear to P&A Abd: Soft, Normal bowel sounds, No organomegaly Ext:No significant edema Skin: No rashes, Integument intact Abnormal Lab Results 01/05/17 01/05/17 06:00 06:00 WBC 26.6 H D RBC 3.24 L Hgb 10.4 L Hct 31.2 L MCV 96.2 H Monocytes % 3.0 L Metamyelocytes 5 H D Chloride 109 H Anion Gap 7 L BUN 6 L Home Medication List Medication Instructions Recorded Confirmed Type Unobtainable [Unobtainable] 01/01/17 01/01/17 History Active Medications Generic Name Dose Route Start Last Admin Trade Name Freq PRN Reason Stop Dose Admin Acetaminophen 650 mg 01/02/17 11:10 01/04/17 21:03 Tylenol - PO 650 mg Q6H PRN Administration FEVER OR PAIN Albuterol Sulfate 1 amp 01/02/17 01:34 Ventolin 0.083% Nebulizer Soln - NEB Q4H PRN SHORT OF BREATH/WHEEZING Clotrimazole 1 applic 01/02/17 11:00 01/05/17 10:43 Lotrisone Cream (Small Tube) TP 1 applic BID GELY Administration Ondansetron HCl 4 mg 01/02/17 01:34 Zofran Injection IVPB Q6H PRN NAUSEA Pantoprazole Sodium 40 mg 01/02/17 11:15 01/05/17 10:43 Protonix - PO 40 mg DAILY GELY Administration A/P 51 y/o patient with breast cnacer, s/p Taxoter/cytoxan [id number] Low grade fevers--cultures neg./resolved Hypotension?? baseline with nocturnal dipping Unlikely capillary leak Improved d/c iv fluids Cardilogy consult Trent tight ness-- EKG/CXR nl ? neulasts To get echo Incentive spirometer d/c planning
--- NOTE | 2017-01-05 15:28 | PN ---
Physical Exam: SUBJECTIVE: Patient seen and examined by me at bedside. No overnight events. Patient reports pressure like pain in her chest but relates it to stress. Patient is able to walk without difficulty or lightheadedness. Otherwise, patient denies fever, chills, nausea, vomiting, abdominal pain, shortness of breath, headaches. OBJECTIVE: Vital Signs Period Temp Pulse Resp BP Sys/Diaz Pulse Ox Last 24 Hr 98 F-99 F 81-97 18-20 102-134/59-71 96-99 GENERAL: The patient is awake, alert, and fully oriented, in no acute distress.. LUNGS: Breath sounds equal, clear to auscultation bilaterally, no wheezes, no crackles, no accessory muscle use. HEART: Regular rate and rhythm, S1, S2 without murmur, rub or gallop. ABDOMEN: Soft, nontender, nondistended, normoactive bowel sounds. EXTREMITIES: No peripheral edema. Laboratory Results - last 24 hr 01/05/17 01/05/17 01/05/17 06:00 06:00 12:20 WBC 26.6 H D RBC 3.24 L Hgb 10.4 L Hct 31.2 L MCV 96.2 H MCHC 33.3 RDW 13.2 Plt Count 194 MPV 8.7 Neutrophils % 73.0 Lymphocytes % 15.0 D Monocytes % 3.0 L Band Neutrophils 2.0 D Metamyelocytes 5 H D Myelocytes 2 D Differential Comment Manual diff done Platelet Estimate Adequate Sodium 145 Potassium 3.7 Chloride 109 H Carbon Dioxide 29 Anion Gap 7 L BUN 6 L Creatinine 0.6 Random Glucose 75 Calcium 8.6 Creatine Kinase 41 Troponin I < 0.02 Active Medications Generic Name Dose Route Start Last Admin Trade Name Freq PRN Reason Stop Dose Admin Acetaminophen 650 mg 01/02/17 11:10 01/04/17 21:03 Tylenol - PO 650 mg Q6H PRN Administration FEVER OR PAIN Albuterol Sulfate 1 amp 01/02/17 01:34 Ventolin 0.083% Nebulizer Soln - NEB Q4H PRN SHORT OF BREATH/WHEEZING Clotrimazole 1 applic 01/02/17 11:00 01/05/17 10:43 Lotrisone Cream (Small Tube) TP 1 applic BID GELY Administration Ondansetron HCl 4 mg 01/02/17 01:34 Zofran Injection IVPB Q6H PRN NAUSEA Pantoprazole Sodium 40 mg 01/02/17 11:15 01/05/17 10:43 Protonix - PO 40 mg DAILY GELY Administration IMAGES: Chest X-ray (01/01/17): No acute pathology ASSESSMENT/PLAN: Patient is a 51 year old female with a PMHx of breast cancer on chemotherapy with first treatment done 12/25/16 who presented for a low grade fever of 100.3 F and was told by her oncologist, Dr. Webb, to come to the ED if she was to have a fever. Patient admitted for further monitoring and management Low Grade fever with Lymphocytosis and monocytosis s/p Chemotherapy- Imprved -S/P first cycle adjuvant chemotherapy (Taxotere/Cytoxan)on 12/25/16 -G-CSF given on 12/30/16 -Afebrile since admission -Leukocytosis today 26.6 -Abx discontinued -Blood cultures negative -Urine cultures negative r -Continue Tylenol PRN -Continue Zofran PRN -Continue Robitussin PRN -ID and Oncology consult appreciated Atypical Chest pain -Cardiology consult placed -ECHO ordered -Cardiac profile ordered -EKG ordered Hypotension- Improved -Improving -Fluids discontinued -Will continue to monitor Right Breast Cancer -S/P Myomectomy on chemotherapy -Continue to monitor CBC -Heme/Onco consult appreciated F/E/N -On no fluids -Electrolytes wnl -Regular Diet Prophylaxis -SCD's and EAM for DVT Disposition -Will monitor overnight due to atypical chest pain. Visit type - Emergency Visit Emergency Visit: Yes ED Registration Date: 01/04/17 Care time: The patient presented to the Emergency Department on the above date and was hospitalized for further evaluation of their emergent condition. - New Patient This patient is new to me today: No - Critical Care Critical Care patient: No
[2017-01-06 07:31] LABS: MCH 32.3 pg (25.7-33.7); MCHC 34.2 g/dl (32.0-36.0); MEAN CELL VOLUME 94.6 fl (80-96); MEAN PLT VOLUME 8.4 fl (7.5-11.1); PLATELET COUNT 188 K/MM3 (134-434); RDW 13.1 % (11.6-15.6); WHITE BLOOD COUNT 17.4 K/mm3 (4.0-10.0)
[2017-01-06 07:50] LABS: TROPONIN I < 0.02 ng/ml (0.00-0.05)
[2017-01-06] MEDS: PANTOPRAZOLE 40 MG TABLET (FP) PO SCH (11:00)
[2017-01-06] MEDS: CLOTRIMAZOLE/BETAMET DIPROP 15 GM TUBE TP SCH (11:00)
--- NOTE | 2017-01-06 13:23 | PN ---
Progress Note (short form) - Note Progress Note: Ambulating in the hallway and in the atrium. Breathing feels ok. Some substernal pressure. Seen by cardiology. ECHO results pending. Overall improvement in BP. Intake & Output 01/03/17 01/04/17 01/05/17 01/06/17 23:59 23:59 23:59 23:59 Intake Total 940 4070 2200 150 Balance 940 4070 2200 150 Last Vital Signs Temp Pulse Resp BP Pulse Ox 98.8 F 81 16 101/61 96 01/06/17 08:59 01/06/17 08:59 01/06/17 08:59 01/06/17 08:59 01/05/17 21:00 Active Medications Acetaminophen (Tylenol -) 650 mg PO Q6H PRN PRN Reason: FEVER OR PAIN Last Admin: 01/04/17 21:03 Dose: 650 mg Albuterol Sulfate (Ventolin 0.083% Nebulizer Soln -) 1 amp NEB Q4H PRN PRN Reason: SHORT OF BREATH/WHEEZING Clotrimazole (Lotrisone Cream (Small Tube)) 1 applic TP BID [facility] Last Admin: 01/06/17 11:00 Dose: 1 applic Ondansetron HCl (Zofran Injection) 4 mg IVPB Q6H PRN PRN Reason: NAUSEA Pantoprazole Sodium (Protonix -) 40 mg PO DAILY [facility] Last Admin: 01/06/17 11:00 Dose: 40 mg Constitutional: Yes: No Distress Eyes: Yes: WNL, Conjunctiva Clear HENT: Yes: WNL, Atraumatic, Normocephalic Neck: Yes: WNL, Supple, Trachea Midline Cardiovascular: Yes: WNL, Regular Rate and Rhythm Respiratory: Yes: WNL, Regular, CTA Bilaterally ...Inspection: Yes: WNL ...Clubbing: No Gastrointestinal: Yes: WNL, Normal Bowel Sounds, Soft Renal/: Yes: WNL Musculoskeletal: Yes: WNL Extremities: Yes: WNL Edema: No Peripheral Pulses WNL: Yes Integumentary: Yes: WNL Neurological: Yes: WNL, Alert, Oriented ...Motor Strength: WNL Psychiatric: Yes: WNL, Alert, Oriented Labs: Laboratory Results - last 24 hr 01/06/17 01/06/17 01/06/17 06:00 06:00 06:00 WBC 17.4 H D RBC 3.48 L Hgb 11.3 Hct 32.9 MCV 94.6 MCHC 34.2 RDW 13.1 Plt Count 188 MPV 8.4 Creatine Kinase 30 Troponin I < 0.02 B-Natriuretic Peptide 516.36 H Problem List - Problems (1) Breast cancer, right Code(s): C50.911 - MALIGNANT NEOPLASM OF UNSP SITE OF RIGHT FEMALE BREAST (2) Hypotension Code(s): I95.9 - HYPOTENSION, UNSPECIFIED (3) Capillary leak syndrome Code(s): I78.8 - OTHER DISEASES OF CAPILLARIES Assessment/Plan Ambulate Check ECHO No Pulmonary contraindication for D/C planning Dr Ozuna Problem List - Problems (1) Breast cancer, right Code(s): C50.911 - MALIGNANT NEOPLASM OF UNSP SITE OF RIGHT FEMALE BREAST Qualifiers: Breast location: upper outer quadrant of breast Patient sex: female Qualified Code(s): C50.411 - Malignant neoplasm of upper-outer quadrant of right female breast; Z17.0 - Estrogen receptor positive status [ER+] (2) Hypotension Code(s): I95.9 - HYPOTENSION, UNSPECIFIED (3) Capillary leak syndrome Code(s): I78.8 - OTHER DISEASES OF CAPILLARIES
--- NOTE | 2017-01-06 14:06 | EKG ---
Test Reason : Blood Pressure : / mmHG Vent. Rate : 086 BPM Atrial Rate : 086 BPM P-R Int : 132 ms QRS Dur : 086 ms QT Int : 378 ms P-R-T Axes : 059 049 053 degrees QTc Int : 452 ms NORMAL SINUS RHYTHM NORMAL ECG WHEN COMPARED WITH ECG OF 05-JAN-2017 11:43, NO SIGNIFICANT CHANGE WAS FOUND Confirmed by KRYSTIN RAMÍREZ MD ([id number]) on 01/06/2017 2:05:58 PM Referred By: Greg BETTS Confirmed By:KRYSTIN RAMÍREZ MD
--- NOTE | 2017-01-06 14:17 | EKG ---
Test Reason : Blood Pressure : / mmHG Vent. Rate : 076 BPM Atrial Rate : 076 BPM P-R Int : 150 ms QRS Dur : 086 ms QT Int : 378 ms P-R-T Axes : 061 048 036 degrees QTc Int : 425 ms NORMAL SINUS RHYTHM NORMAL ECG WHEN COMPARED WITH ECG OF 03-JAN-2017 11:48, NO SIGNIFICANT CHANGE WAS FOUND Confirmed by KRYSTIN RAMÍREZ MD ([id number]) on 01/06/2017 2:17:23 PM Referred By: Greg BETTS Confirmed By:KRYSTIN RAMÍREZ MD
[2017-01-06 14:33] VITALS: BP 87/48; PULSE 83; TEMP 98.7
--- NOTE | 2017-01-06 15:52 | PN ---
Teaching Attending Note Name of Resident: Lesley Ojeda ATTENDING PHYSICIAN STATEMENT I saw and evaluated the patient. I reviewed the resident's note and discussed the case with the resident. I agree with the resident's findings and plan as documented. SUBJECTIVE:remains asymptomatic. denies CP, SOB,fever, chills, N/V/C/D, cough OBJECTIVE: Last Vital Signs Temp Pulse Resp BP Pulse Ox 98.7 F 83 18 87/48 96 01/06/17 14:32 01/06/17 14:32 01/06/17 14:32 01/06/17 14:32 01/05/17 21:00 General NAD CV S1 S2 RRR no murmur/rub/gallop no chest wall tenderness Lungs CTA B/L no wheezing/rales/rhonchi ASSESSMENT AND PLAN: 51yo F with PMH breast cancer who started chemotherapy last week (last treatment 12/25) who presented to the ER with fever. 1. Fever s/p chemotherapy- was not neutropenic on presentation but was started on empiric cefepime. cx all reported on negative. abx stopped on 01/04. remains afebrile. leukocytosis trending down. did receive neulasta after chemo 2. atypical CP- no repeated episodes. cardiac markers neg x2. echo pending. evaluated by cardio. 3. Hypotension- improved. likely side effect from neulasta. 4. d/c planning pending echo report
--- NOTE | 2017-01-06 18:38 | DS ---
Physical Exam: SUBJECTIVE: Patient seen and examined by me at bedside. No overnight events noted. Patient offers no complaints. Denies fever, chills, nausea, vomiting, chest pain, palpitations, shortness of breath, abdominal pain. OBJECTIVE: Vital Signs Period Temp Pulse Resp BP Sys/Diaz Pulse Ox Last 24 Hr 98.6 F-98.9 F 68-83 16-20 87-121/48-61 96-98 PHYSICAL EXAM GENERAL: The patient is awake, alert, and fully oriented, in no acute distress.. LUNGS: Breath sounds equal, clear to auscultation bilaterally, no wheezes, no crackles, no accessory muscle use. HEART: Regular rate and rhythm, S1, S2 without murmur, rub or gallop. ABDOMEN: Soft, nontender, nondistended, normoactive bowel sounds. EXTREMITIES: No peripheral edema. LABS Laboratory Results - last 24 hr 01/06/17 01/06/17 01/06/17 06:00 06:00 06:00 WBC 17.4 H D RBC 3.48 L Hgb 11.3 Hct 32.9 MCV 94.6 MCHC 34.2 RDW 13.1 Plt Count 188 MPV 8.4 Creatine Kinase 30 Troponin I < 0.02 B-Natriuretic Peptide 516.36 H HOSPITAL COURSE: Patient is a 51 year old female with a PMHx of breast cancer on adjuvant chemotherapy (Taxotere/Cytoxan) with first cycle on 12/25/16 who presented for a low grade fever of 100.3. Patient was told by her oncologist, Dr. Webb, to come to the ED if she was to have a fever. Patient reports at home she had an initial fever of 100.9 and then 100.7. She did not take anything for the fever and came to the ED. Patient was found to have Low Grade fever with Lymphocytosis and monocytosis. She was started on abx and cultures were sent. The next day patient had leukocytosis but fever resolved. Her cultures were negative. Fever and Leukocytosis were likely secondary to G-CSF given on , as per hematology. Throughout the hospital course patient was found to be hypotensive and was placed on fluids with a possible differential of capillary leak. Hypotension then resolved with fluids. Patient then experienced chest pressure, which she related it to her anxiety. EKG, troponins and echo were ordered. EKG and troponins did not show any acute infarct or cardiac problem. [employer] was consulted and ordered and ECHO. ECHO revealed no LV dysfunction or global hypokinesis. Patient remained stable for discharge today. Patient was instructed to make a follow up appointment with the superintendent factory next thursday (01/13/17) and an appointment with Dr. Polo at [facility] for a PPD this Thursday on (01/09/17). Date of Admission:01/04/17 Date of Discharge: 01/06/17 Minutes to complete discharge: 45 Discharge Summary Reason For Visit: FEVER NEUTROPENIA Current Active Problems Capillary leak syndrome (Acute) Fever (Acute) Hypotension (Acute) Breast cancer, right (Chronic) Condition: Stable - Instructions Diet, Activity, Other Instructions: -You may resume your regular diet and activities -You will need to call Dr. Webb, your oncologist, and schedule an appointment for Thursday (01/13/17) for a follow up -You will need to follow up with the Welding Rod [employer], Dr. Xiong, within two weeks -You will need to follow up with Dr. Polo at the [facility] this Thursday (09/26) for a PPD test. -If you begin to experience high fevers >100.5 F, chest pain, shortness of breath, loss of consciousness, return to the emergency department. Referrals: Aashish Beltran MD [Primary Care Provider] - Mikel Xiong MD [Staff Physician] - Disposition: HOME - Home Medications Comprehensive Discharge Medication List: Ambulatory Orders Unobtainable [Unobtainable] 01/01/17 This patient is new to me today: No Emergency Visit: Yes ED Registration Date: 01/04/17 Care time: The patient presented to the Emergency Department on the above date and was hospitalized for further evaluation of their emergent condition. Critical Care patient: No - Discharge Referral Referred to [facility] No
--- NOTE | 2017-01-06 19:28 | PN ---
Progress Note (short form) - Note Progress Note: PAtient seen and examined No SOB/CP. Asymptomatic No cough/phlegm/bowel/bladder symptoms Last Vital Signs Temp Pulse Resp BP Pulse Ox 98.7 F 83 18 87/48 98 01/06/17 14:32 01/06/17 14:32 01/06/17 14:32 01/06/17 14:32 01/06/17 09:00 Cor: RSR, No murmurs, No gallops Lungs: Clear to P&A Abd: Soft, Normal bowel sounds, No organomegaly Ext:No significant edema Skin: No rashes, Integument intact Abnormal Lab Results 01/06/17 01/06/17 06:00 06:00 WBC 17.4 H D RBC 3.48 L B-Natriuretic Peptide 516.36 H Home Medication List Medication Instructions Recorded Confirmed Type Unobtainable [Unobtainable] 01/01/17 01/01/17 History A/P 51 y/o patient with breast cnacer, s/p Taxoter/cytoxan C1D13 Low grade fevers--cultures neg./resolved Hypotension?? baseline with nocturnal dipping Unlikely capillary leak. Low suspicion suspect baseline low BP in 90s with some nocturnal dipping, while asleep Improved off IV fluids > 24hrs. discussed with patient/ in great detail Incentive spirometer d/c planning to f/u with Dr. Polo Thursday, for PPD placement To f/u with me, ophthalmology, cardiology Contact nos. given Patient reports anxiety --reassured her. and for close f/u in the office
== END 2017-01-06 18:53 | disposition home or self-care (01) | DRG 660 ==
LOC: JER 20:52 → JERBED 01-02 01:22 → UNDOADMOB 01-02 01:31 → JERBED 01-02 01:31 → J7W 01-02 10:07 → OBSVTOIN 01-04 16:20
PROVIDERS: ADMIT Internal Medicine; ATTEND Internal Medicine
DX: D70.1 Agranulocytosis secondary to cancer chemotherapy (principal); C50.911 Malignant neoplasm of unspecified site of right female breast; D72.820 Lymphocytosis (symptomatic); D72.821 Monocytosis (symptomatic); I95.9 Hypotension, unspecified; R50.2 Drug induced fever; T45.1X5A Adverse effect of antineoplastic and immunosuppressive drugs, initial encounter; Z87.891 Personal history of nicotine dependence; R07.9 Chest pain, unspecified
CPT/HCPCS: 36415; 71010-TC; 71020-TC; 80048; 80053; 81003; 81015; 82550; 83880; 84439; 84443; 84484; 85025; 85027; 85610; 85660; 86431; 87040; 87086; 93005; 93010; 93306-TC; 94010; 99284-25; G0378

== ENCOUNTER 2017-01-20 07:23 | Day surgery (SDC) | payer OTHER ==
[~2017-01-20 07:23] MED LIST changes: +CYCLOPHOSPHAMIDE INJECTION 1,040 MG in SODIUM CHLORIDE 250 ML IVPB ONE; +DEXAMETHASONE INJECTION 10 MG in SODIUM CHLORIDE 50 ML IVPB ONE; +DOCETAXEL IV ONE; +FOSAPREPITANT DIMEGLUMINE 150 MG in SODIUM CHLORIDE 150 ML IVPB ONE; -ISOSULFAN BLUE 10 MG/ML VIAL SQ ONE; -LIDOCAINE 1%-EPI 1:100,000 30 ML MDV IJ ONE; -LIDOCAINE HCL 1%, 10 MG/ML (20ML VIAL) ONE; +PALONOSETRON HCL 0.25 MG in SODIUM CHLORIDE 50 ML IVPB ONE; +SODIUM CHLORIDE 250 ML IV ONE; +SODIUM CHLORIDE IV ONE
[2017-01-20] MEDS ORDERED: DEXAMETHASONE INJECTION 10 MG in SODIUM CHLORIDE 50 ML IVPB ONE (10:00)
[2017-01-20] MEDS ORDERED: PALONOSETRON HCL 0.25 MG in SODIUM CHLORIDE 50 ML IVPB ONE (10:00)
[2017-01-20] MEDS ORDERED: SODIUM CHLORIDE 250 ML IV ONE ×2 (10:00→12:00)
[2017-01-20] MEDS ORDERED: FOSAPREPITANT DIMEGLUMINE 150 MG in SODIUM CHLORIDE 150 ML IVPB ONE (10:00)
[2017-01-20 10:23] LABS: BASOPHIL 0.2 % (0-2.0); MCH 32.7 pg (25.7-33.7); MCHC 34.8 g/dl (32.0-36.0); NEUTROPHILS 90.3 % (42.8-82.8); PLATELET COUNT 339 K/MM3 (134-434); RDW 13.6 % (11.6-15.6); WHITE BLOOD COUNT 10.9 K/mm3 (4.0-10.0)
[2017-01-20] MEDS ORDERED: DOCETAXEL IV ONE (10:30)
[2017-01-20] MEDS ORDERED: SODIUM CHLORIDE IV ONE (10:30)
[2017-01-20 10:53] LABS: ALBUMIN 3.8 g/dl (3.4-5.0); ANION GAP 9 (8-16); BILIRUBIN,TOTAL 0.4 mg/dL (0.2-1.0); CALCIUM 9.5 mg/dL (8.5-10.1); CO2 25 mmol/L (21-32); COCKROFT - GAULT 119.85; CREATININE 0.6 mg/dL (0.55-1.02); GLUCOSE,RANDOM 127 mg/dL (74-106); MAGNESIUM 2.4 mg/dL (1.8-2.4); SGOT/AST 15 U/L (15-37); SGPT/ALT 17 U/L (12-78); TOT PROT 7.1 g/dl (6.4-8.2)
[2017-01-20 10:54] LABS: ALK PHOS 105 U/L (45-117)
[2017-01-20] MEDS ORDERED: CYCLOPHOSPHAMIDE INJECTION 1,000 MG in SODIUM CHLORIDE 250 ML IVPB ONE (11:30)
[2017-01-20] MEDS ORDERED: PORTA CATH FLUSH 10 ML IVPUSH ONE (12:15)
[2017-01-20] MEDS ORDERED: DEXAMETHASONE INJECTION 20 MG in SODIUM CHLORIDE 100 ML IVPB ONE (12:30)
[2017-01-20 17:31] VITALS: BP 110/74; PULSE 92; TEMP 98.3
== END 2017-01-20 17:40 | disposition home or self-care (01) ==
LOC: JONCCHEMO 07:23 → J7W 11:40 → JONCCHEMO 17:40
PROVIDERS: ATTEND Internal Medicine Hematology & Oncology
PROC: 3E04305 Introduction of Other Antineoplastic into Central Vein, Percutaneous Approach (ICD-10-PCS; principal; 2017-01-20)
PROC: 3E043GC Introduction of Other Therapeutic Substance into Central Vein, Percutaneous Approach (ICD-10-PCS; 2017-01-20)
PROC: 3E0437Z Introduction of Electrolytic and Water Balance Substance into Central Vein, Percutaneous Approach (ICD-10-PCS; 2017-01-20)
DX: Z51.11 Encounter for antineoplastic chemotherapy (principal); C50.911 Malignant neoplasm of unspecified site of right female breast
CPT/HCPCS: 96361; 96375; 96413; 96417; J9070; J9171; 36415; 80053; 82530; 83735; 85025; 96360; 96367; J2469

== ENCOUNTER 2017-01-23 10:59 | Day surgery (SDC) | payer OTHER ==
[2017-01-23 11:29] LABS: MCH 31.8 pg (25.7-33.7); MCHC 33.3 g/dl (32.0-36.0); MEAN CELL VOLUME 95.7 fl (80-96); MEAN PLT VOLUME 9.3 fl (7.5-11.1); PLATELET COUNT 206 K/MM3 (134-434); RDW 13.9 % (11.6-15.6); WHITE BLOOD COUNT 26.6 K/mm3 (4.0-10.0)
[2017-01-23 12:41] LABS: PLATELET ESTIMATE ADEQUATE (NORMAL)
== END 2017-01-23 12:13 | disposition home or self-care (01) ==
LOC: JONCCHEMO 10:59 → J7W 11:45 → JONCCHEMO 12:13
PROVIDERS: ATTEND Internal Medicine Hematology & Oncology
PROC: 3E013GC Introduction of Other Therapeutic Substance into Subcutaneous Tissue, Percutaneous Approach (ICD-10-PCS; principal; 2017-01-23)
DX: Z53.8 Procedure and treatment not carried out for other reasons (principal)
CPT/HCPCS: 36415; 85025; 96379

== ENCOUNTER 2017-02-08 08:13 | Emergency (ER) | payer OTHER ==
[2017-02-08 08:18] VITALS: BP 114/64; PULSE 97; TEMP 98.3; BMI 27.8
--- NOTE | 2017-02-08 08:54 | PDOC ---
History of Present Illness - General Chief Complaint: Rash Stated Complaint: RASH Time Seen by Provider: 02/08/17 08:33 History Source: Patient Exam Limitations: No Limitations - History of Present Illness Initial Comments: 02/08/17 09:04 Patient is here with complaints of onset of red itching rash that started last night. States woke up this morning with itching took a Zyrtec and went back to sleep. When she woke up today and noticed that there was more lesions and worsened itching. Patient denies swelling to face lips tongue is or problems breathing. Denies fever, recent URI or other illness. No one else at home has rash, has had no recent exposures or known insect bites infestations. Denies any changes in her medications and last dose of chemotherapy was 2 weeks ago. Due for another course in 4 days. Is being treated for breast cancer. Timing/Duration: reports: changing over time Severity: Yes: mild, moderate Location: reports: generalized Modifying Factors: improves with: antihistamine, scratching Associated Symptoms: reports: hives. denies: denies symptoms Past History - Travel Traveled outside of the country in the last 30 days: No Close contact w/someone who was outside of country & ill: No - Past Medical History Allergies/Adverse Reactions: Allergies Allergy/AdvReac Type Severity Reaction Status Date / Time TAPE Allergy Rash Uncoded 02/08/17 08:18 Home Medications: Ambulatory Orders Fluconazole [Diflucan -] 50 mg PO ONCE #1 tablet 02/08/17 Fluconazole [Diflucan -] 100 mg PO ONCE #1 tablet 02/08/17 Anemia: No Asthma: No Cancer: Yes (R BREAST) Cardiac Disorders: No CVA: No COPD: No CHF: No Dementia: No Diabetes: No GI Disorders: Yes (inguinal hernia) Disorders: No HTN: No Hypercholesterolemia: No Liver Disease: No Seizures: No Thyroid Disease: No - Surgical History Abdominal Surgery: Yes (HERNIA) Appendectomy: No Cardiac Surgery: No Cholecystectomy: No Lung Surgery: No Neurologic Surgery: No Orthopedic Surgery: No - Psycho/Social/Smoking Cessation Hx Anxiety: No Suicidal Ideation: No Smoking History: Never smoked Have you smoked in the past 12 months: Yes Number of Cigarettes Smoked Daily: 5 Hx Alcohol Use: No Drug/Substance Use Hx: No Substance Use Type: None Hx Substance Use Treatment: No Review of Systems - Review of Systems Able to Perform ROS?: Yes Is the patient limited Senegalese proficient: Yes Constitutional: Yes: See HPI. No: Symptoms Reported, Fever, Loss of Appetite, Malaise HEENTM: Yes: See HPI. No: Symptoms Reported, Nose Congestion, Throat Pain, Difficulty Swallowing Respiratory: Yes: See HPI. No: Symptoms reported, Cough, Wheezing Integumentary: Yes: Symptoms Reported, See HPI, Pruritus, Rash All Other Systems: Reviewed and Negative *Physical Exam - Vital Signs Last Vital Signs Temp Pulse Resp BP Pulse Ox 98.3 F 97 H 20 114/64 99 02/08/17 08:15 02/08/17 08:15 02/08/17 08:15 02/08/17 08:15 02/08/17 08:15 - Physical Exam General Appearance: Yes: Nourished, Appropriately Dressed, Mild Distress HEENT: positive: PATRICK, Normal ENT Inspection, TMs Normal, Pharynx Normal, Nasal Congestion Neck: positive: Trachea midline, Supple. negative: Lymphadenopathy (R), Lymphadenopathy (L) Respiratory/Chest: positive: Lungs Clear, Normal Breath Sounds. negative: Chest Tender Cardiovascular: positive: Regular Rate Musculoskeletal: positive: Normal Inspection Extremity: positive: Normal Capillary Refill, Normal Inspection, Normal Range of Motion Integumentary: positive: Normal Color, Dry, Warm, Other (well-circumscribed lesions however some confluent erythematous and blanching with pruritus in scattered groups covering most of body, did not appear hive-like do not appear vesicular,) Neurologic: positive: plating operator II-XII NML intact, Fully Oriented, Alert, Normal Mood/ Affect, Normal Response, Motor Strength 12/12 ED Treatment Course - LABORATORY CBC & Chemistry Diagram: 02/08/17 09:05 02/08/17 09:05 Progress Note - Progress Note Progress Note: Pruritic rash of unknown etiology. Discussed case with Dr. Webb, her oncologist [phone], requested patient to have basic labs drawn, observation. To identify any worsening of symptoms. Medical Decision Making - Medical Decision Making 02/08/17 12:22 labs WNL, improved redness to rash. and less itching. WIll provide 1 dose of diflucan for treatment for Tinea. Patient will F/U with Dr Webb. tomorrow *DC/Admit/Observation/Transfer Diagnosis at time of Disposition: Dermatitis - Discharge Dispostion Disposition: HOME Condition at time of disposition: Stable Admit: No - Referrals Referrals: Aashish Beltran MD [Primary Care Provider] - - Patient Instructions Printed Discharge Instructions: DI for Rash Additional Instructions: Rest, keep cool and dry- avoid strenuous activity or hot /humid environments Less hot showers, no abrasive soaps May use heavy creams like Eucerin or Cetaphil to keep skin moist May apply Aveeno, calamine lotion, [id number] hydrocortisone creams as needed for symptoms May use Benadryl at night for antihistamine, Zyrtec/ Latonya or Claritin for daytime antihistamine use to help with itching May use [id number]-[id number] hydrocortisone cream on all areas except face Try to identify cause for rash and avoid exposures Followup with PMD in one week if no resolution Make appointment with [facility] for evaluation when possible You're given 1 dose of Decadron 10 mg for anti-inflammatory/steroidal treatment You have been prescribed Diflucan 150 mg tablet for 1 time treatment of fungal infection
[2017-02-08] MEDS ORDERED: DEXAMETHASONE 4 MG TABLET (FP) PO STA (09:00)
[2017-02-08 09:13] LABS: BASOPHIL 0.7 % (0-2.0); EOSINOPHIL 0.2 % (0-4.5); MCH 32.4 pg (25.7-33.7); MCHC 34.1 g/dl (32.0-36.0); MEAN PLT VOLUME 8.6 fl (7.5-11.1); NEUTROPHILS 78.5 % (42.8-82.8); PLATELET COUNT 310 K/MM3 (134-434); RDW 13.9 % (11.6-15.6); WHITE BLOOD COUNT 10.2 K/mm3 (4.0-10.0)
[2017-02-08] MEDS ORDERED: DEXAMETHASONE SOD PHOSPHATE 10 MG/1 ML VIAL ONE (09:13)
[2017-02-08 09:39] LABS: ALBUMIN 3.5 g/dl (3.4-5.0); ALK PHOS 99 U/L (45-117); ANION GAP 7 (8-16); BILIRUBIN,TOTAL 0.3 mg/dL (0.2-1.0); CALCIUM 9.4 mg/dL (8.5-10.1); CO2 29 mmol/L (21-32); CREATININE 0.6 mg/dL (0.55-1.02); GLUCOSE,RANDOM 102 mg/dL (74-106); SGOT/AST 30 U/L (15-37); SGPT/ALT 32 U/L (12-78); TOT PROT 6.7 g/dl (6.4-8.2)
== END 2017-02-08 10:44 | disposition home or self-care (01) ==
LOC: JERFT 08:13
DX: L30.8 Other specified dermatitis (principal); B35.4 Tinea corporis; C50.911 Malignant neoplasm of unspecified site of right female breast
CPT/HCPCS: 36415; 80053; 85025; 99281-25

== ENCOUNTER 2017-02-11 07:48 | Inpatient (IN) | payer OTHER ==
[2017-02-11] MEDS ORDERED: PALONOSETRON HCL 0.25 MG in SODIUM CHLORIDE 50 ML IVPB ONE (10:00)
[2017-02-11] MEDS ORDERED: DEXAMETHASONE INJECTION 10 MG in SODIUM CHLORIDE 50 ML IVPB ONE (10:00)
[2017-02-11] MEDS ORDERED: SODIUM CHLORIDE 250 ML IV ONE ×2 (10:00→12:00)
[2017-02-11] MEDS ORDERED: SODIUM CHLORIDE IV ONE ×2 (10:30→19:15)
[2017-02-11] MEDS ORDERED: DOCETAXEL IV ONE (10:30)
[2017-02-11] MEDS ORDERED: CYCLOPHOSPHAMIDE INJECTION 1,000 MG in SODIUM CHLORIDE 250 ML IVPB ONE (11:30)
[2017-02-11 14:10] LABS: BASOPHIL 0.8 % (0-2.0); MCH 32.4 pg (25.7-33.7); MEAN CELL VOLUME 95.2 fl (80-96); NEUTROPHILS 84.6 % (42.8-82.8); PLATELET COUNT 381 K/MM3 (134-434); RDW 14.5 % (11.6-15.6); WHITE BLOOD COUNT 13.1 K/mm3 (4.0-10.0)
[2017-02-11 14:39] LABS: ALBUMIN 3.6 g/dl (3.4-5.0); ALK PHOS 93 U/L (45-117); ANION GAP 13 (8-16); BILIRUBIN,TOTAL 0.4 mg/dL (0.2-1.0); CALCIUM 9.2 mg/dL (8.5-10.1); CO2 23 mmol/L (21-32); CREATININE 0.8 mg/dL (0.55-1.02); GLUCOSE,RANDOM 143 mg/dL (74-106); MAGNESIUM 2.4 mg/dL (1.8-2.4); SGOT/AST 20 U/L (15-37); SGPT/ALT 28 U/L (12-78); TOT PROT 6.9 g/dl (6.4-8.2)
[2017-02-11 14:41] LABS: BILIRUBIN,DIRECT < 0.1 mg/dL (0.0-0.2)
--- NOTE | 2017-02-11 15:54 | CON.CARD ---
Consult Consult Specialty:: Cardiology Referred by:: Dr. Webb Reason for Consultation:: Pre-Adriamycin cardiovascular evaluation - History of Present Illness Chief Complaint: Breast ca History of Present Illness: Patient is a 52 y/o female with h/o T2, N0 breast cancer S/P taxotere/cytoxan, seen in ER for pruritic rash, chemo regimen switched to Adriamycin-based chemotherapy. We are asked to evaluate pre-chemotherapy cardiovascular evaluation, most recent echo 01/22/2017 shows preserved systolic function. She denies chest pain, dyspnea, near or true syncope, palpitations, orthopnea, PND or LE edema. PMHx: Vertebral disk disease breast cancer SH prior smoker - History Source History Provided By: Patient Limitations to Obtaining History: No Limitations - Past Medical History ...LMP: 08/10/15 Musculoskeletal: Yes: Other (Herniated disc cervical) Additional Medical History: seasonal allergies - Past Surgical History Past Surgical History: Yes: Hernia Repair (inguinal 1989) - Alcohol/Substance Use Hx Alcohol Use: No - Smoking History Smoking history: Never smoked Have you smoked in the past 12 months: Yes Aproximately how many cigarettes per day: 5 Home Medications - Allergies Allergies/Adverse Reactions: Allergies Allergy/AdvReac Type Severity Reaction Status Date / Time adhesive tape Allergy Unknown Rash Verified 02/10/17 16:50 TAPE Allergy Rash Uncoded 02/08/17 08:18 - Home Medications Home Medications: Ambulatory Orders Fluconazole [Diflucan -] 50 mg PO ONCE #1 tablet 02/08/17 Fluconazole [Diflucan -] 100 mg PO ONCE #1 tablet 02/08/17 Family Disease History - Family Disease History Family Disease History: CA: Grandparent (paternal GM breast ca 85), Mother ( ovarian cancer 60) Vital Signs: Vital Signs Temperature 98.1 F 02/11/17 13:54 Pulse Rate 93 H 02/11/17 13:54 Respiratory Rate 16 02/11/17 13:54 Blood Pressure 98/60 02/11/17 13:54 O2 Sat by Pulse Oximetry (%) Constitutional: Yes: No Distress, Calm, Thin Neck: Yes: Supple Respiratory: Yes: Regular, CTA Bilaterally Gastrointestinal: Yes: Normal Bowel Sounds, Soft Cardiovascular: Yes: Regular Rate and Rhythm JVD: No Carotid Bruit: No Heart Sounds: Yes: S1, S2 Edema: No - Other Data Labs, Other Data: CBC, BMP 02/11/17 13:47 02/11/17 13:47 01/06/2017 NSR @ 70 Ejection Fraction %: LVEF > or = 40 % Problem List - Problems (1) Breast cancer, right Code(s): C50.911 - MALIGNANT NEOPLASM OF UNSP SITE OF RIGHT FEMALE BREAST Qualifiers: Breast location: upper outer quadrant of breast Patient sex: female (2) History of cancer chemotherapy Code(s): Z92.21 - PERSONAL HISTORY OF ANTINEOPLASTIC CHEMOTHERAPY Assessment/Plan Echo: 01/22/2017 Normal biventricular size and fxn, tr TR 1. Pre-Adriamycin cardiovascular evaluation 2. Right breast cancer post chemotherapy and Neulasta P:1. Trial of carvedilol 3.125 bid and losartan 12.5 qd as hemodynamics tolerate 2. Limit cumulative dose of Adriamycin < 450 mg/m^2 with slow infusion 3. Check ECG, GBP scan 4. Thank you for consultative opportunity
[2017-02-11] MEDS ORDERED: FOSAPREPITANT DIMEGLUMINE 150 MG in SODIUM CHLORIDE 150 ML IVPB ONE ×2 (16:00→17:00)
[2017-02-11] MEDS ORDERED: LOSARTAN POTASSIUM 25 MG TABLET PO SCH (16:30)
[2017-02-11] MEDS: CARVEDILOL 3.125 MG TABLET (FP) PO SCH (17:33)
[2017-02-11] MEDS ORDERED: PORTA CATH FLUSH 10 ML IVPUSH ONE (17:42)
[2017-02-11] MEDS ORDERED: DOXORUBICIN HCL IV ONE (19:15)
[2017-02-11] MEDS ORDERED: DOCUSATE SODIUM 100 MG CAPSULE (FP) PO PRN (21:31)
[2017-02-11] MEDS: SENNOSIDES 8.6MG TABLET (FP) PO SCH (21:43)
[2017-02-12 07:44] LABS: BASOPHIL 0.2 % (0-2.0); MCH 33.1 pg (25.7-33.7); MCHC 34.6 g/dl (32.0-36.0); MEAN CELL VOLUME 95.8 fl (80-96); MEAN PLT VOLUME 9.6 fl (7.5-11.1); NEUTROPHILS 89.9 % (42.8-82.8); PLATELET COUNT 346 K/MM3 (134-434); RDW 14.1 % (11.6-15.6); WHITE BLOOD COUNT 9.9 K/mm3 (4.0-10.0)
[2017-02-12 08:20] LABS: ALBUMIN 3.2 g/dl (3.4-5.0); ALK PHOS 84 U/L (45-117); ANION GAP 10 (8-16); BILIRUBIN,TOTAL 0.7 mg/dL (0.2-1.0); CO2 27 mmol/L (21-32); CREATININE 0.5 mg/dL (0.55-1.02); GLUCOSE,RANDOM 121 mg/dL (74-106); SGOT/AST 17 U/L (15-37); SGPT/ALT 22 U/L (12-78)
[2017-02-12] MEDS: PANTOPRAZOLE 40 MG TABLET (FP) PO SCH (09:48)
[2017-02-12] MEDS ORDERED: DEXAMETHASONE 4 MG TABLET (FP) PO ONE (10:00)
--- NOTE | 2017-02-12 11:22 | EKG ---
Test Reason : Blood Pressure : / mmHG Vent. Rate : 080 BPM Atrial Rate : 080 BPM P-R Int : 152 ms QRS Dur : 086 ms QT Int : 372 ms P-R-T Axes : 062 046 045 degrees QTc Int : 429 ms NORMAL SINUS RHYTHM NORMAL ECG WHEN COMPARED WITH ECG OF 06-JAN-2017 09:30, NO SIGNIFICANT CHANGE WAS FOUND Confirmed by MARILYN XIONG MD ([id number]) on 02/12/2017 11:21:42 AM Referred By: COLIN Confirmed By:MARILYN XIONG MD
--- NOTE | 2017-02-12 12:05 | PN ---
Progress Note, Physician History of Present Illness: She denies chest pain, dyspnea, near or true syncope, palpitations, orthopnea, PND or LE edema. Tolerated first dose of Adriamycin. and carvedilol and losartan trial. - Current Medication List Current Medications: Active Medications Carvedilol (Coreg -) 3.125 mg PO BID [facility] Last Admin: 02/11/17 17:33 Dose: 3.125 mg Docusate Sodium (Colace -) 100 mg PO BID PRN PRN Reason: CONSTIPATION Furosemide (Lasix Injection -) 10 mg IVPUSH ONCE ONE Stop: 02/12/17 12:16 Losartan Potassium (Cozaar -) 12.5 mg PO DAILY [facility] Last Admin: 02/11/17 17:33 Dose: 12.5 mg Pantoprazole Sodium (Protonix -) 40 mg PO DAILY [facility] Last Admin: 02/12/17 09:48 Dose: 40 mg Senna (Senna -) 2 tab PO HS [facility] Last Admin: 02/11/17 21:43 Dose: 2 tab - Objective Vital Signs: Vital Signs Temperature 98.6 F 02/12/17 07:45 Pulse Rate 71 02/12/17 07:45 Respiratory Rate 20 02/12/17 09:00 Blood Pressure 110/63 02/12/17 07:45 O2 Sat by Pulse Oximetry (%) Constitutional: Yes: No Distress, Calm, Thin Neck: Yes: Supple Cardiovascular: Yes: Regular Rate and Rhythm Respiratory: Yes: Regular, CTA Bilaterally Gastrointestinal: Yes: Normal Bowel Sounds, Soft Edema: No Labs: CBC, BMP 02/12/17 06:00 02/12/17 06:00 Problem List - Problems (1) Breast cancer, right Code(s): C50.911 - MALIGNANT NEOPLASM OF UNSP SITE OF RIGHT FEMALE BREAST Qualifiers: Breast location: upper outer quadrant of breast Patient sex: female (2) History of cancer chemotherapy Code(s): Z92.21 - PERSONAL HISTORY OF ANTINEOPLASTIC CHEMOTHERAPY Assessment/Plan Echo: 01/22/2017 Normal biventricular size and fxn, tr TR 1. Pre-Adriamycin cardiovascular evaluation 2. Right breast cancer post chemotherapy and Neulasta P:1. Continue carvedilol 3.125 bid and losartan 12.5 qd as hemodynamics tolerate 2. Limit cumulative dose of Adriamycin < 450 mg/m^2 with slow infusion 3. F/u GBP scan after completion of Adriamycin dosing 4. Patient to see Dr. uNno as outpatient for CV f/u.
[2017-02-12] MEDS ORDERED: FUROSEMIDE 40 MG/4 ML INJECTABLE VIAL IVPUSH ONE (12:15)
[2017-02-12] MEDS ORDERED: FUROSEMIDE 10 MG/1 ML VIAL (4 ML VIAL) IVPUSH ONE (12:15)
[2017-02-12] MEDS: CLOTRIMAZOLE 1% CREAM 15 GM TUBE TP SCH ×2 (13:13→22:56)
--- NOTE | 2017-02-12 15:43 | PN ---
Progress Note (short form) - Note Progress Note: Patient seen and examined c/o chest pressure, shortness of breath Last Vital Signs Temp Pulse Resp BP Pulse Ox 98.2 F 69 20 100/50 02/12/17 14:50 02/12/17 14:50 02/12/17 14:50 02/12/17 14:50 Abnormal Lab Results 02/12/17 02/12/17 06:00 06:00 RBC 3.27 L Hct 31.3 L Neutrophils % 89.9 H Lymphocytes % 7.4 L D Monocytes % 2.5 L BUN 21 H D Creatinine 0.5 L D Random Glucose 121 H Total Protein 6.0 L Albumin 3.2 L Active Medications Generic Name Dose Route Start Last Admin Trade Name Freq PRN Reason Stop Dose Admin Carvedilol 3.125 mg 02/11/17 18:00 02/11/17 17:33 Coreg - PO 3.125 mg BID GELY Administration Clotrimazole 1 applic 02/12/17 12:15 02/12/17 13:13 Lotrimin 1% Cream - TP 1 applic BID GELY Administration Docusate Sodium 100 mg 02/11/17 21:31 Colace - PO BID PRN CONSTIPATION Losartan Potassium 12.5 mg 02/11/17 16:30 02/11/17 17:33 Cozaar - PO 12.5 mg DAILY GELY Administration Pantoprazole Sodium 40 mg 02/12/17 10:00 02/12/17 09:48 Protonix - PO 40 mg DAILY GELY Administration Senna 2 tab 02/11/17 22:00 02/11/17 21:43 Senna - PO 2 tab HS GELY Administration A/P 52 y/opatient with stage IIA, T2, N0, ER+, Her2-, breast cancer, recurrence score of 69, s/p 2 cycles TC. developed generalized morbilliform rash, Possible hypersenstivity top taxotere Changed to AC yesterday Echo 01/23 showed LVEF 55% with nl thickness, wallmotion, function started coreg/losartan per cardiology HAs some fluid retention to taxotere --10lb wt. gain Received lasix 10mg IVP Will check EKG/CXR. R/o WI --atupical chest pain
[2017-02-12] MEDS ORDERED: PROCHLORPERAZINE MALEATE 5 MG TABLET PO PRN (15:49)
--- NOTE | 2017-02-12 15:49 | EKG ---
Test Reason : Blood Pressure : / mmHG Vent. Rate : 076 BPM Atrial Rate : 076 BPM P-R Int : 136 ms QRS Dur : 088 ms QT Int : 394 ms P-R-T Axes : 060 052 051 degrees QTc Int : 443 ms NORMAL SINUS RHYTHM NORMAL ECG WHEN COMPARED WITH ECG OF 11-FEB-2017 16:49, NO SIGNIFICANT CHANGE WAS FOUND Confirmed by MARILYN XIONG MD ([id number]) on 02/12/2017 3:49:29 PM Referred By: MINE ZIMMERMAN Confirmed By:MARILYN XIONG MD
[2017-02-12 16:06] VITALS: BMI 26.7
[2017-02-12 18:37] LABS: TROPONIN I < 0.02 ng/ml (0.00-0.05)
--- NOTE | 2017-02-12 20:27 | HP ---
CHIEF COMPLAINT: Chest pressure PCP: Dr. Tracey Steven HISTORY OF PRESENT ILLNESS: Patient is a 52 year-old female with a significant PMH of stage IIA, T2, N0, ER +, Her2- breast cancer, recurrence score of 69, s/p 2 cycles of taxotere/ cytoxan. She developed a multiforme rash on 02/07/17. Her chemo regimen was switched to adriamycin-based chemotherapy, and she was seen on 02/11/17 by cardiology for pre-chemotherapy cardiovascular evaluation. The risks and benefits of the treatment plan were discussed with the patient. Shortly thereafter the patient developed chest pressure. Recent Travel: No Social History: Smoking: No Alcohol: No Drugs: No Family History: Allergies adhesive tape Allergy (Unknown, Verified 02/10/17 16:50) Rash TAPE Allergy (Uncoded 02/08/17 08:18) Rash HOME MEDICATIONS: Home Medications Medication Instructions Recorded Fluconazole [Diflucan -] 50 mg PO ONCE #1 tablet 02/08/17 Fluconazole [Diflucan -] 100 mg PO ONCE #1 tablet 02/08/17 REVIEW OF SYSTEMS CONSTITUTIONAL: Absent: fever, chills, diaphoresis, generalized weakness, malaise, loss of appetite, weight change HEENT: Absent: rhinorrhea, nasal congestion, throat pain, throat swelling, difficulty swallowing, mouth swelling, ear pain, eye pain, visual changes CARDIOVASCULAR: Present: chest pressure Absent: chest pain, syncope, palpitations, irregular heart rate, lightheadedness , peripheral edema RESPIRATORY: Absent: cough, shortness of breath, dyspnea with exertion, orthopnea, wheezing, stridor, hemoptysis GASTROINTESTINAL: Absent: abdominal pain, abdominal distension, nausea, vomiting, diarrhea, constipation, melena, hematochezia GENITOURINARY: Absent: dysuria, frequency, urgency, hesitancy, hematuria, flank pain, genital pain MUSCULOSKELETAL: Absent: myalgia, arthralgia, joint swelling, back pain, neck pain SKIN: Absent: rash, itching, pallor HEMATOLOGIC/IMMUNOLOGIC: Absent: easy bleeding, easy bruising, lymphadenopathy, frequent infections ENDOCRINE: Absent: unexplained weight gain, unexplained weight loss, heat intolerance, cold intolerance NEUROLOGIC: Absent: headache, focal weakness or paresthesias, dizziness, unsteady gait, seizure, mental status changes, bladder or bowel incontinence PSYCHIATRIC: Absent: anxiety, depression, suicidal or homicidal ideation, hallucinations. PHYSICAL EXAMINATION Vital Signs - 24 hr 02/11/17 02/11/17 02/12/17 20:47 23:14 01:41 Temperature 98.3 F 98.7 F Pulse Rate 85 83 Respiratory 18 18 18 Rate Blood Pressure 94/57 95/45 02/12/17 02/12/17 02/12/17 05:20 07:45 08:36 Temperature 98.4 F 98.6 F Pulse Rate 79 71 Respiratory 18 18 20 Rate Blood Pressure 94/57 110/63 02/12/17 02/12/17 02/12/17 09:00 12:17 14:50 Temperature 98.2 F Pulse Rate 69 69 Respiratory 20 20 20 Rate Blood Pressure 103/63 100/50 02/12/17 18:00 Temperature 98 F Pulse Rate 68 Respiratory 20 Rate Blood Pressure 112/63 HEENT: RAISSA, EOM Intact Oropharynx: No thrush, No mucositis Neck: Supple Nodes: Without adenopathy Breasts: Without masses right breast -well healed surgical scar Cor: RSR, No murmurs, No gallops Lungs: Clear to P&A Abd: Soft, Normal bowel sounds, No organomegaly Ext:No significant edema Skin: No rashes, Integument intact Laboratory Results - last 24 hr 02/12/17 02/12/17 02/12/17 06:00 06:00 16:44 WBC 9.9 RBC 3.27 L Hgb 10.8 Hct 31.3 L MCV 95.8 MCHC 34.6 RDW 14.1 Plt Count 346 MPV 9.6 Neutrophils % 89.9 H Lymphocytes % 7.4 L D Monocytes % 2.5 L Eosinophils % 0.0 Basophils % 0.2 Sodium 140 Potassium 4.3 Chloride 103 Carbon Dioxide 27 Anion Gap 10 BUN 21 H D Creatinine 0.5 L D Creat Clearance w eGFR > 60 Random Glucose 121 H Calcium 9.0 Total Bilirubin 0.7 D AST 17 ALT 22 D Alkaline Phosphatase 84 Creatine Kinase 26 CK-MB (CK-2) Troponin I < 0.02 Total Protein 6.0 L Albumin 3.2 L 02/12/17 02/12/17 16:44 16:44 WBC RBC Hgb Hct MCV MCHC RDW Plt Count MPV Neutrophils % Lymphocytes % Monocytes % Eosinophils % Basophils % Sodium Potassium Chloride Carbon Dioxide Anion Gap BUN Creatinine Creat Clearance w eGFR Random Glucose Calcium Total Bilirubin AST ALT Alkaline Phosphatase Creatine Kinase Cancelled CK-MB (CK-2) Cancelled Troponin I Cancelled Total Protein Albumin ASSESSMENT/PLAN 52 year-old female with a significant PMH of stage IIA, T2, N0, ER+, Her2- breast cancer, recurrence score of 69, s/p 2 cycles of taxotere/cytoxan. She developed a multiforme rash on 02/07/17. Her chemo regimen was switched to adriamycin-based chemotherapy, and she was seen on 02/11/17 by cardiology for pre- chemotherapy cardiovascular evaluation. The risks and benefits of the treatment plan were discussed with the patient. Shortly thereafter the patient developed chest pressure. Atypical chest pain --initial troponin negative, ECG not suggestive of acute ischemic event --01/22/2017 Echo: normal biventricular size and fxn, tr TR --seen and evaluated by cardiology who recommends starting Coreg and Losartan for cardioprotection as hemodynamics tolerate Right Breast Invasive Ductal Carcinoma --Granix shot tomorrow --f/u with Dr. Webb on Thursday Visit type - Emergency Visit Emergency Visit: No - New Patient This patient is new to me today: Yes Date on this admission: 02/13/17 - Critical Care Critical Care patient: No
[2017-02-12] MEDS: SENNOSIDES 8.6MG TABLET (FP) PO SCH (22:56)
[2017-02-12] MEDS: CARVEDILOL 3.125 MG TABLET (FP) PO SCH (22:56)
[2017-02-13] MEDS ORDERED: TBO-FILGRASTIM 480 MCG/0.8 ML DISP.SYRIN SQ ONE (08:00)
--- NOTE | 2017-02-13 09:17 | DS ---
Physical Exam: SUBJECTIVE: Patient seen and examined OBJECTIVE: Vital Signs Period Temp Pulse Resp BP Sys/Diaz Pulse Ox Last 24 Hr 98 F-98.5 F 59-69 20-20 93-112/50-63 PHYSICAL EXAM HEENT: RAISSA, EOM Intact Oropharynx: No thrush, No mucositis Neck: Supple Nodes: Without adenopathy Breasts: Without masses right breast -well healed surgical scar Cor: RSR, No murmurs, No gallops Lungs: Clear to P&A Abd: Soft, Normal bowel sounds, No organomegaly Ext:No significant edema Skin: No rashes, Integument intact LABS CBCD WBC 9.9 K/mm3 (4.0-10.0) 02/12/17 06:00 RBC 3.27 M/mm3 (3.60-5.2) L 02/12/17 06:00 Hgb 10.8 GM/dL (10.7-15.3) 02/12/17 06:00 Hct 31.3 % (32.4-45.2) L 02/12/17 06:00 MCV 95.8 fl (80-96) 02/12/17 06:00 MCHC 34.6 g/dl (32.0-36.0) 02/12/17 06:00 RDW 14.1 % (11.6-15.6) 02/12/17 06:00 Plt Count 346 K/MM3 (134-434) 02/12/17 06:00 MPV 9.6 fl (7.5-11.1) 02/12/17 06:00 CMP Sodium 140 mmol/L (136-145) 02/12/17 06:00 Potassium 4.3 mmol/L (3.5-5.1) 02/12/17 06:00 Chloride 103 mmol/L (98-107) 02/12/17 06:00 Carbon Dioxide 27 mmol/L (21-32) 02/12/17 06:00 Anion Gap 10 (8-16) 02/12/17 06:00 BUN 21 mg/dL (7-18) H D 02/12/17 06:00 Creatinine 0.5 mg/dL (0.55-1.02) L D 02/12/17 06:00 Creat Clearance w eGFR > 60 (>60) 02/12/17 06:00 Calcium 9.0 mg/dL (8.5-10.1) 02/12/17 06:00 Total Bilirubin 0.7 mg/dL (0.2-1.0) D 02/12/17 06:00 AST 17 U/L (15-37) 02/12/17 06:00 ALT 22 U/L (12-78) D 02/12/17 06:00 Alkaline Phosphatase 84 U/L (45-117) 02/12/17 06:00 Total Protein 6.0 g/dl (6.4-8.2) L 02/12/17 06:00 Albumin 3.2 g/dl (3.4-5.0) L 02/12/17 06:00 Laboratory Results - last 24 hr 02/12/17 02/12/17 02/12/17 16:44 16:44 16:44 Creatine Kinase 26 Cancelled CK-MB (CK-2) Cancelled Troponin I < 0.02 Cancelled 02/13/17 06:00 Creatine Kinase CK-MB (CK-2) Troponin I < 0.02 HOSPITAL COURSE: Date of Admission:02/11/17 Date of Discharge: 02/13/17 52 year-old female with a significant PMH of stage IIA, T2, N0, ER+, Her2- breast cancer, recurrence score of 69, s/p 2 cycles of taxotere/cytoxan. She developed a multiforme rash on 02/07/17. Her chemo regimen was switched to adriamycin-based chemotherapy, and she was seen on 02/11/17 by cardiology for pre- chemotherapy cardiovascular evaluation. The risks and benefits of the treatment plan were discussed with the patient. Shortly thereafter the patient developed chest pressure and was admitted to rule out ACS. Atypical chest pain --serial troponins negative; ECG not suggestive of acute ischemic event; ACS ruled out --01/22/2017 Echo: normal biventricular size and fxn, tr TR --seen and evaluated by cardiology who recommended starting Coreg and Losartan for cardioprotection as hemodynamics tolerate --blood pressure low, cardiac meds not started Right Breast Invasive Ductal Carcinoma --Granix shot given today --Lasix IV 10mg x 1 --f/u with Dr. Webb on Thursday Minutes to complete discharge: 35 Discharge Summary Reason For Visit: MALIGNANT NEOPLASM OF UNSP SITE OF RIGHT FEMALE BR Current Active Problems Capillary leak syndrome (Acute) Fever (Acute) History of cancer chemotherapy (Acute) Hypotension (Acute) Breast cancer, right (Chronic) Condition: Improved - Instructions Referrals: Tracey Steven MD [Staff Physician] - 02/16/17 10:00 am Disposition: HOME - Home Medications Comprehensive Discharge Medication List: Ambulatory Orders Fluconazole [Diflucan -] 50 mg PO ONCE #1 tablet 02/08/17 Fluconazole [Diflucan -] 100 mg PO ONCE #1 tablet 02/08/17 This patient is new to me today: No Emergency Visit: No Critical Care patient: No - Discharge Referral Referred to [facility] No
[2017-02-13 09:35] VITALS: BP 84/58; PULSE 84; TEMP 98.1
--- NOTE | 2017-02-13 09:57 | PN ---
Progress Note (short form) - Note Progress Note: Patient seen and examined. offers no complaints on ROS. Last Vital Signs Temp Pulse Resp BP Pulse Ox 98.1 F 84 18 84/58 02/13/17 09:35 02/13/17 09:35 02/13/17 09:35 02/13/17 09:35 HEENT: RAISSA, EOM Intact Oropharynx: No thrush, No mucositis Neck: Supple Nodes: Without adenopathy Breasts: Without masses right breast -well healed surgical scar Cor: RSR, No murmurs, No gallops Lungs: Clear to P&A Abd: Soft, Normal bowel sounds, No organomegaly Ext:No significant edema Skin: No rashes, Integument intact CBC, BMP 02/12/17 06:00 02/12/17 06:00 Current Medications Generic Name Dose Route Start Last Admin Trade Name Freq PRN Reason Stop Dose Admin Clotrimazole 1 applic 02/12/17 12:15 02/12/17 22:56 Lotrimin 1% Cream - TP 1 applic BID GELY Administration Docusate Sodium 100 mg 02/11/17 21:31 Colace - PO BID PRN CONSTIPATION Pantoprazole Sodium 40 mg 02/12/17 10:00 02/12/17 09:48 Protonix - PO 40 mg DAILY GELY Administration Prochlorperazine Maleate 10 mg 02/12/17 15:49 Compazine - PO Q8H PRN NAUSEA AND/OR VOMITING Senna 2 tab 02/11/17 22:00 02/12/17 22:56 Senna - PO 2 tab HS GELY Administration Impression Breast ca Adjuvant chemotherapy with A-C Plan: Blu Rendon Discharge and office follow up.
[2017-02-13] MEDS ORDERED: TBO-FILGRASTIM 480 MCG/0.8 ML DISP.SYRIN SQ SCH (10:00)
[2017-02-13] MEDS ORDERED: FUROSEMIDE 20 MG TABLET (FP) PO ONE (10:15)
[2017-02-13] MEDS: PANTOPRAZOLE 40 MG TABLET (FP) PO SCH (10:18)
[2017-02-13] MEDS: CLOTRIMAZOLE 1% CREAM 15 GM TUBE TP SCH (10:18)
--- NOTE | 2017-02-13 15:47 | EKG ---
Test Reason : Blood Pressure : / mmHG Vent. Rate : 068 BPM Atrial Rate : 068 BPM P-R Int : 142 ms QRS Dur : 088 ms QT Int : 410 ms P-R-T Axes : 060 048 047 degrees QTc Int : 435 ms NORMAL SINUS RHYTHM NORMAL ECG WHEN COMPARED WITH ECG OF 12-FEB-2017 15:02, NO SIGNIFICANT CHANGE WAS FOUND Confirmed by ETHEL ELLER MD ([id number]) on 02/13/2017 3:47:07 PM Referred By: CHRISTIANNE VINSON Confirmed By:ETHEL ELLER MD
== END 2017-02-13 11:20 | disposition home or self-care (01) | DRG 203 ==
LOC: JONCCHEMO 07:48 → J7W 15:58 → JONCCHEMO 15:58 → J7W 15:58
PROVIDERS: ADMIT Internal Medicine Hematology & Oncology; ATTEND Nurse Practitioner Acute Care
DX: R07.89 Other chest pain (principal); R21 Rash and other nonspecific skin eruption; C50.911 Malignant neoplasm of unspecified site of right female breast; Z92.21 Personal history of antineoplastic chemotherapy; T45.1X5A Adverse effect of antineoplastic and immunosuppressive drugs, initial encounter
CPT/HCPCS: 36415; 71010-TC; 80053; 80076; 82550; 83735; 84484; 85025; 93005; 93010; 96367; 96375; 96413; 96417; J1447; J1453; J2469; J9070

== ENCOUNTER 2017-03-04 07:22 | Day surgery (SDC) | payer OTHER ==
[2017-03-04] MEDS ORDERED: SODIUM CHLORIDE 250 ML IV ONE ×2 (08:00→10:30)
[2017-03-04] MEDS ORDERED: PALONOSETRON HCL 0.25 MG in SODIUM CHLORIDE 50 ML IVPB ONE (08:30)
[2017-03-04] MEDS ORDERED: FOSAPREPITANT DIMEGLUMINE 150 MG in SODIUM CHLORIDE 145 ML IVPB ONE (08:30)
[2017-03-04] MEDS ORDERED: DEXAMETHASONE INJECTION 10 MG in SODIUM CHLORIDE 50 ML IVPB ONE (08:30)
[2017-03-04] MEDS ORDERED: DOXORUBICIN HCL 104 MG in SODIUM CHLORIDE 100 ML IV ONE (09:00)
[2017-03-04] MEDS ORDERED: [UNRECOGNIZED DRUG - OTHER] IVPB ONE (10:00)
[2017-03-04] MEDS ORDERED: CYCLOPHOSPHAMIDE IVPB ONE (10:00)
[2017-03-04 11:05] LABS: BASOPHIL 0.9 % (0-2.0); MCH 32.6 pg (25.7-33.7); MCHC 34.2 g/dl (32.0-36.0); MEAN CELL VOLUME 95.3 fl (80-96); MEAN PLT VOLUME 8.6 fl (7.5-11.1); NEUTROPHILS 72.8 % (42.8-82.8); PLATELET COUNT 441 K/MM3 (134-434); WHITE BLOOD COUNT 12.3 K/mm3 (4.0-10.0)
[2017-03-04 11:31] LABS: ALBUMIN 3.5 g/dl (3.4-5.0); ALK PHOS 84 U/L (45-117); ANION GAP 10 (8-16); BILIRUBIN,TOTAL 0.3 mg/dL (0.2-1.0); CALCIUM 9.7 mg/dL (8.5-10.1); CO2 26 mmol/L (21-32); CREATININE 0.6 mg/dL (0.55-1.02); GLUCOSE,RANDOM 118 mg/dL (74-106); MAGNESIUM 2.4 mg/dL (1.8-2.4); SGOT/AST 16 U/L (15-37); SGPT/ALT 18 U/L (12-78); TOT PROT 6.4 g/dl (6.4-8.2)
[2017-03-04 11:33] LABS: BILIRUBIN,DIRECT < 0.1 mg/dL (0.0-0.2)
[2017-03-04 13:24] VITALS: TEMP 98.4
[2017-03-04] MEDS ORDERED: PORTA CATH FLUSH 10 ML IVPUSH ONE (13:24)
[2017-03-04 18:41] VITALS: BP 100/60; PULSE 72
== END 2017-03-04 18:42 | disposition home or self-care (01) ==
LOC: JONCCHEMO 07:22 → J7W 12:13 → JONCCHEMO 18:42
PROVIDERS: ATTEND Internal Medicine Hematology & Oncology
DX: Z51.11 Encounter for antineoplastic chemotherapy (principal); C50.311 Malignant neoplasm of lower-inner quadrant of right female breast
CPT/HCPCS: 36415; 80053; 80076; 83735; 85025; 96361; 96367; 96375; 96413; 96417; J1453; J2469; J9070

== ENCOUNTER 2022-04-16 19:42 | Emergency (ER) | payer OTHER ==
[2022-04-16 19:50] VITALS: BP 111/77; PULSE 83; RESP 17; TEMP 98; BMI 29.0
[2022-04-16] MEDS ORDERED: ACETAMINOPHEN 500 MG TABLET (FP) PO ONE (20:27)
[2022-04-16] MEDS ORDERED: METOCLOPRAMIDE HCL INJECTION 10 MG/2 ML VIAL IVPB ONE (20:37)
[2022-04-16] MEDS ORDERED: ACETAMINOPHEN 1000 MG/100 ML BAG IVPB ONE (20:37)
[2022-04-16] MEDS ORDERED: LIDOCAINE 5% TOPICAL PATCH TP ONE (20:42)
[2022-04-16] MEDS ORDERED: METHOCARBAMOL 500 MG TABLET PO ONE (20:42)
[2022-04-16] MEDS ORDERED: LIDOCAINE 5% TOPICAL PATCH ONE (20:44)
[2022-04-16] MEDS ORDERED: METOCLOPRAMIDE HCL INJECTION 10 MG/2 ML VIAL ONE (20:44)
[2022-04-16] MEDS ORDERED: ACETAMINOPHEN INJECTION 100 ML IVPB ONE (20:44)
[2022-04-16] MEDS ORDERED: METHOCARBAMOL 500 MG TABLET ONE (20:44)
[2022-04-16 21:15] LABS: EOS % 5.6 % (0-4.5); HEMATOCRIT 39.2 % (32.4-45.2); HEMOGLOBIN 13.3 GM/dL (10.7-15.3); LYMPH % 36.6 % (8-40); MCH 31.4 pg (25.7-33.7); MCHC 33.9 g/dl (32.0-36.0); MEAN CELL VOLUME 92.5 fl (80-96); MONO % 6.3 % (3.8-10.2); NEUT % 50.5 % (42.8-82.8); PLATELET COUNT 276 10^3/uL (134-434); RBC 4.23 M/mm3 (3.60-5.2); RDW 13.6 % (11.6-15.6); WHITE BLOOD COUNT 7.2 K/mm3 (4.0-10.0)
[2022-04-16 21:43] LABS: CALCIUM 9.2 mg/dL (8.5-10.1)
[2022-04-16 21:44] LABS: ALBUMIN 3.6 g/dl (3.4-5.0); BLOOD UREA NITROGEN 16.1 mg/dL (7-18)
[2022-04-16 21:47] LABS: CREATININE 0.8 mg/dL (0.55-1.3)
[2022-04-16 21:49] LABS: BILIRUBIN,TOTAL 0.6 mg/dL (0.2-1); TOT PROT 7.1 g/dl (6.4-8.2)
[2022-04-17] MEDS ORDERED: LIDOCAINE PATCH REMOVAL MC SCH (09:00)
== END 2022-04-16 22:17 | disposition home or self-care (01) ==
LOC: JER 19:42
PROC: 3E033NZ Introduction of Analgesics, Hypnotics, Sedatives into Peripheral Vein, Percutaneous Approach (ICD-10-PCS; principal; 2022-04-16)
PROC: 3E033GC Introduction of Other Therapeutic Substance into Peripheral Vein, Percutaneous Approach (ICD-10-PCS; 2022-04-16)
DX: M62.838 Other muscle spasm (principal)
CPT/HCPCS: 36415; 80053; 85025; 93005; 93010; 96374; 96375; 99284-25